=== PATIENT | male | born 1945 | race Caucasian/White ===

== ENCOUNTER 2016-06-25 09:10 | Outpatient (CLI) | payer MEDICARE, OTHER | END 2016-06-25 09:11 | disposition home or self-care (01) | DX: R07.9 Chest pain, unspecified (principal) ==

== ENCOUNTER 2016-10-13 19:52 | Outpatient (CLI) | payer MEDICARE, OTHER ==
--- NOTE | 2016-10-14 08:09 | Ultrasound Report ---
EXAM: LEFT UPPER EXTREMITY VENOUS ULTRASOUND EXAM DATE: 10/13/2016 09:23 PM. CLINICAL HISTORY: FH BLOOD DISORDER, SWELLING OF LEFT ARM. COMPARISON: None. TECHNIQUE: Real-time sonographic vascular imaging was performed by the interior design principal through the upper extremity utilizing both color-flow and Doppler spectral analysis. Multiple business office representative static rahul ges were saved for review. FINDINGS: Internal Jugular Vein (IJV): Normal. Subclavian Vein (SCV): Normal. Axillary Vein : Normal. Cephalic Vein (superficial vein): Normal. Basilic Vein (superficial vein): Normal. Brachial Vein: Normal. Other: None. IMPRESSION: No evidence for left upper extremity deep vein thrombosis. [facility] Referring Provider Line: [phone] SITE ID: [id number]
== END 2016-10-13 19:53 | disposition home or self-care (01) ==
LOC: DI 19:52
PROVIDERS: ATTEND Family Medicine
DX: M79.89 Other specified soft tissue disorders (principal); Z83.2 Family history of diseases of the blood and blood-forming organs and certain disorders involving the immune mechanism

== ENCOUNTER 2017-02-04 09:18 | Outpatient (CLI) | payer MEDICARE, OTHER ==
--- NOTE | 2017-02-04 14:20 | Ultrasound Report ---
LIMITED RETROPERITONEAL ULTRASOUND: 02/04/2017 CLINICAL INDICATION: Followup aneurysm. COMPARISON: 01/29/2016 TECHNIQUE: Real-time scanning was performed with outside sales representative static images obtained. FINDINGS: The abdominal aorta measures 2.9 cm proximally, and 3.2 cm in the mid portion. The bilobe d distal abdominal aortic aneurysm is again seen. Maximal transverse diameter in the superior portio n of the aneurysm is now 4.3 cm, and distal 4.2 cm, increased from previous of 3.8 and 3.4 cm respect ively. No free fluid is present. The iliacs are normal in caliber. IMPRESSION: SLIGHT INTERVAL INCREASE IN SIZE OF BILOBED DISTAL ABDOMINAL AORTIC ANEURYSM, NOW MEASUR ING 4.3 CM MAXIMAL TRANSVERSE DIMENSION. JOB #: [id number] EXT JOB #:[id number]
== END 2017-02-04 09:19 | disposition home or self-care (01) ==
LOC: DI 09:18
PROVIDERS: ATTEND Family Medicine
DX: I71.4 Abdominal aortic aneurysm, without rupture (principal)
CPT/HCPCS: 76775

== ENCOUNTER 2017-02-04 09:18 | Outpatient (CLI) | payer MEDICARE, OTHER | END 2017-02-04 09:19 | disposition home or self-care (01) | LOC: DI 09:18 | PROVIDERS: ATTEND Family Medicine | DX: I48.91 Unspecified atrial fibrillation (principal); I71.4 Abdominal aortic aneurysm, without rupture; I51.7 Cardiomegaly | CPT/HCPCS: 76775; 93306 ==

== ENCOUNTER 2017-05-26 08:47 | Outpatient (CLI) | payer MEDICARE, OTHER ==
[2017-05-26 13:08] LABS: BASOPHILS # (AUTO) 0.1 10^3/uL (0.0-0.1); BASOPHILS % (AUTO) 1.3 %; EOSINOPHILS # (AUTO) 0.1 10^3/uL (0.0-0.7); EOSINOPHILS % (AUTO) 1.4 %; HGB - HEMOGLOBIN 12.8 g/dL (14.0-18.0); LYMPHOCYTES # (AUTO) 1.1 10^3/uL (1.5-3.5); LYMPHOCYTES % (AUTO) 18.8 %; MEAN CORPUSCULAR HEMOGLOBIN 36.9 pg (27.0-31.0); MEAN CORPUSCULAR VOLUME 105.4 fL (80.0-94.0); MONOCYTES # (AUTO) 0.5 10^3/uL (0.0-1.0); MONOCYTES % (AUTO) 8.6 %; NEUTROPHILS # (AUTO) 4.2 10^3/uL (1.5-6.6); NEUTROPHILS % (AUTO) 69.9 %; PLT - PLATELET COUNT 127 10^3/uL (130-450); RED BLOOD COUNT 3.46 10^6/uL (4.70-6.10); RED CELL DISTRIBUTION WIDTH 19.8 % (12.0-15.0)
[2017-05-26 13:33] LABS: ALBUMIN 4.3 g/dL (3.2-5.5); ALKALINE PHOSPHATASE 40 IU/L (42-121); ALT ALANINE AMINOTRANSFERASE 40 IU/L (10-60); AST ASPARTATE AMINOTRANSFERASE 31 IU/L (10-42); BILIRUBIN,TOTAL 3.3 mg/dL (0.2-1.0); BUN - BLOOD UREA NITROGEN 19 mg/dL (6-20); CALCIUM 9.4 mg/dL (8.5-10.3); CARBON DIOXIDE - CO2 29 mmol/L (21-32); CHLORIDE 102 mmol/L (101-111); CHOL/HDL RATIO 3.9 (<5.0); CHOLESTEROL 120 mg/dL; CREATININE 1.4 mg/dL (0.6-1.2); GFR - MDRD 50 (>89); GLUCOSE 117 mg/dL (70-100); HDL CHOLESTEROL 31 mg/dL; LDL CHOLESTEROL,CALCULATED 38 mg/dL; LDL/HDL RATIO 1.2 (<3.6); SODIUM 138 mmol/L (135-145); TOTAL PROTEIN 6.4 g/dL (6.7-8.2); VLDL CHOLESTEROL 51 mg/dL
[2017-05-26 13:36] LABS: PLATELET MORPHOLOGY RARE GIANT PLATELETS (NORMAL); RBC MORPHOLOGY (MULTIPLE) 3+ ANISOCYTOSIS (NORMAL)
== END 2017-05-26 08:48 | disposition home or self-care (01) ==
LOC: LAB.WCP 08:47
PROVIDERS: ATTEND Family Medicine
DX: I10 Essential (primary) hypertension (principal); E78.5 Hyperlipidemia, unspecified
CPT/HCPCS: 36415; 80053; 80061; 83721; 85025

== ENCOUNTER 2017-06-01 08:00 | Outpatient (CLI) | payer MEDICARE, OTHER ==
[2017-06-01 14:14] LABS: % IRON SATURATION 52 % (20-50); IRON 132 ug/dL (45-182); TOTAL IRON BINDING CAPACITY 255 ug/dL (250-450); TRANSFERRIN 182 mg/dL (180-329)
== END 2017-06-01 08:01 | disposition home or self-care (01) ==
LOC: LAB.WCP 08:00
PROVIDERS: ATTEND Family Medicine
DX: D64.9 Anemia, unspecified (principal)
CPT/HCPCS: 36415; 82728; 83540; 84466

== ENCOUNTER 2017-06-10 07:42 | Day surgery (SDC) | payer MEDICARE, OTHER ==
[~2017-06-10 07:42] MED LIST: CYCLOPENTOLATE 1% OPHTH DROPS 2 ML ONE; KETOROLAC 0.45% OPHTH DROPS ONE; PHENYLEPHRINE 2.5% OPHTH 2 ML DROPS ONE; PROPARACAINE 0.5% OPHTH DROPS 15 ML ONE
[2017-06-10] MEDS ORDERED: LACTATED RINGERS 500 ML IV ONE (07:52)
[2017-06-10] MEDS ORDERED: PHENYLEPHRINE 2.5% OPHTH 2 ML DROPS RIGHTEYE ONE (08:00)
[2017-06-10] MEDS ORDERED: CYCLOPENTOLATE 1% OPHTH DROPS 2 ML RIGHTEYE ONE (08:00)
[2017-06-10] MEDS ORDERED: KETOROLAC 0.45% OPHTH DROPS RIGHTEYE ONE (08:00)
[2017-06-10] MEDS ORDERED: PROPARACAINE 0.5% OPHTH DROPS 15 ML RIGHTEYE ONE ×2 (08:00→08:34)
[2017-06-10] MEDS ORDERED: EPINEPHrine 1 MG/ML AMP IR ONE (08:32)
[2017-06-10] MEDS ORDERED: BRIMONIDINE 0.2% OPHTH DROPS 5 ML OPTH ONE (08:32)
[2017-06-10] MEDS ORDERED: CHONDR SULF/HYALURONATE SYRINGE IO ONE (08:33)
[2017-06-10] MEDS ORDERED: TIMOLOL 0.5% OPHTH DROPS OPTH ONE (08:33)
[2017-06-10] MEDS ORDERED: BSS/LIDOCAINE/EPINEPHRINE 1 ML SYRINGE IO ONE ×2 (08:34)
[2017-06-10] MEDS ORDERED: MIDAZOLAM 2 MG/2 ML VIAL IVP ONE (08:34)
[2017-06-10 08:57] VITALS: BP 112/70
--- NOTE | 2017-06-10 09:08 | OPERATIVE REPORT ---
DATE OF SERVICE: 06/10/2017 Physician: Trey Anderson MD PREOPERATIVE DIAGNOSIS: Visually significant cataract, right eye. This was his first cataract surgery. POSTOPERATIVE DIAGNOSIS: Visually significant cataract, right eye. This was his first cataract surgery. NAME OF PROCEDURE: Phacoemulsification with posterior chamber intraocular lens implant, right eye. SURGEON: Trey Anderson MD ANESTHESIA: Monitored anesthesia care. COMPLICATIONS: None. OPERATIVE INDICATIONS: This is a 71-year-old man with progressive vision loss in the right eye due to 2+ nuclear sclerotic cataract. Best corrected visual acuity was 20/20-2 with glare to 20/70 in the right eye. Indications for surgery were difficulty driving in low light or at night and difficulty driving at night because of headlights from other vehicles and/or street lights. He was consented at length concerning risks and benefits of cataract surgery, after which he expressed a desire to proceed with surgery. OPERATIVE PROCEDURE: The patient was taken into OR #3 and placed under monitored anesthesia care. A surgical timeout was conducted confirming correct patient, correct procedure, and correct surgical site. He was given topical anesthesia and then prepped and draped in the usual sterile fashion. The eye was entered at the 12 and 9 o'clock positions. Intracameral Shugarcaine was injected into the anterior chamber, followed by Viscoat. A continuous-tear curvilinear capsulorrhexis was performed. The nucleus was hydrodissected and phacoemulsified. The cortex was evacuated using automated infusion and aspiration. Provisc was injected in the capsular bag, and a 21.0 diopter intraocular lens was inserted into the bag. Approximately 0.8 mL of a mixture of triamcinolone and moxifloxacin was injected subconjunctivally in the superior quadrant for infection and inflammation prophylaxis. I and A was used to evacuate the viscoelastic material. The eye was inflated to physiologic pressure using balanced salt solution and found to be watertight. The patient was taken from the operating room in good condition and given postop instructions. TD: 06/10/2017 09:07
== END 2017-06-10 07:43 | disposition home or self-care (01) ==
LOC: SDS 07:42
PROVIDERS: ATTEND Ophthalmology
PROC: 08RJ3JZ Replacement of Right Lens with Synthetic Substitute, Percutaneous Approach (ICD-10-PCS; principal; 2017-06-10 08:30)
DX: H25.11 Age-related nuclear cataract, right eye (principal); J44.9 Chronic obstructive pulmonary disease, unspecified; I25.10 Atherosclerotic heart disease of native coronary artery without angina pectoris; I25.2 Old myocardial infarction; I10 Essential (primary) hypertension; Z87.891 Personal history of nicotine dependence; E78.5 Hyperlipidemia, unspecified; I48.91 Unspecified atrial fibrillation; K21.9 Gastro-esophageal reflux disease without esophagitis
CPT/HCPCS: 66984; A9270; J3490; V2632

== ENCOUNTER 2017-07-18 09:45 | Emergency (ER) | payer MEDICARE, OTHER ==
[2017-07-18 10:22] LABS: BASOPHILS # (AUTO) 0.1 10^3/uL (0.0-0.1); BASOPHILS % (AUTO) 1.5 %; EOSINOPHILS # (AUTO) 0.1 10^3/uL (0.0-0.7); EOSINOPHILS % (AUTO) 0.9 %; HGB - HEMOGLOBIN 12.9 g/dL (14.0-18.0); LYMPHOCYTES # (AUTO) 0.9 10^3/uL (1.5-3.5); LYMPHOCYTES % (AUTO) 15.1 %; MEAN CORPUSCULAR HEMOGLOBIN 37.2 pg (27.0-31.0); MEAN CORPUSCULAR VOLUME 103.3 fL (80.0-94.0); MEAN PLATELET VOLUME 9.2 fL (7.4-11.4); MONOCYTES # (AUTO) 0.4 10^3/uL (0.0-1.0); MONOCYTES % (AUTO) 7.6 %; NEUTROPHILS # (AUTO) 4.2 10^3/uL (1.5-6.6); NEUTROPHILS % (AUTO) 74.9 %; PLT - PLATELET COUNT 124 10^3/uL (130-450); RED BLOOD COUNT 3.48 10^6/uL (4.70-6.10); RED CELL DISTRIBUTION WIDTH 18.3 % (12.0-15.0); WHITE BLOOD COUNT 5.7 x10^3/uL (4.8-10.8)
[2017-07-18 10:34] LABS: ALBUMIN 4.2 g/dL (3.2-5.5); ALBUMIN/GLOBULIN RATIO 1.9 (1.0-2.2); BILIRUBIN,TOTAL 3.4 mg/dL (0.2-1.0); CALCIUM 9.3 mg/dL (8.5-10.3); CREATININE 1.3 mg/dL (0.6-1.2); TOTAL PROTEIN 6.4 g/dL (6.7-8.2)
[2017-07-18 10:41] LABS: RBC MORPHOLOGY (MULTIPLE) 3+ ANISOCYTOSIS (NORMAL)
--- NOTE | 2017-07-18 10:47 | XRAY Report ---
EXAM: CHEST RADIOGRAPHY EXAM DATE: 07/18/2017 10:35 AM. CLINICAL HISTORY: Chest pain. COMPARISON: None. TECHNIQUE: 2 views. FINDINGS: Lungs/Pleura: No focal opacities evident. No pleural effusion. No pneumothorax. Normal volumes. Mediastinum: Heart and mediastinal contours are unremarkable. Other: Moderate thoracic kyphosis. Mild anterior wedge compression deformity of a midthoracic vertebr al body and a vertebral body at the thoracolumbar junction. IMPRESSION: 1. Lungs are clear. 2. Heart size is normal. 3. Mild anterior wedge compression deformities of a mid thoracic vertebral body and a vertebral body at the thoracolumbar junction. [facility] Referring Provider Line: [phone] SITE ID: [id number]
--- NOTE | 2017-07-18 10:47 | XRAY Preliminary Report ---
Exam: XR CHEST 2 VIEW X-RAY IMPRESSION: 1. Lungs are clear. 2. Heart size is normal. 3. Mild anterior wedge compression deformities of a mid thoracic vertebral body and a vertebral body at the thoracolumbar junction. [facility] SITE ID: [id number]
--- NOTE | 2017-07-18 11:03 | ED Physician Documentation ---
History of Present Illness - Stated complaint Stated Complaint: RT SIDE/NECK PX - Chief complaint Chief Complaint: General - History obtained from History obtained from: Patient, Family - History of Present Illness Timing: How many days ago (4) - Additonal information Additional information: 72-year-old male with a history of atrial fibrillation and abdominal aortic aneurysm has developed some migrating pains in his chest wall and some firmness to his carotid artery. He states that he had some pain in the lateral chest wall on the right side that was tender similar to what he has had previously he states this pain then migrated to the left as well he is not having the symptoms now. He became concerned when he felt that his right carotid artery was firm his palpated she stated that she could feel the artery bounding the patient stated he massaged it for a while and it became soft again. He is not having symptoms now. He does take some furosemide and some Coumadin. Review of Systems Constitutional: denies: Fever Eyes: denies: Decreased vision Ears: denies: Ear pain Nose: denies: Rhinorrhea / runny nose, Congestion Throat: denies: Sore throat Cardiac: denies: Chest pain / pressure, Palpitations Respiratory: denies: Dyspnea, Cough GI: denies: Abdominal Pain, Nausea, Vomiting : denies: Dysuria, Frequency Skin: denies: Rash Musculoskeletal: reports: Neck pain, Back pain. denies: Extremity pain Neurologic: denies: Generalized weakness, Focal weakness, Numbness PD PAST MEDICAL HISTORY - Past Medical History Cardiovascular: Hypertension, High cholesterol, Coronary artery disease, Angina , PR, Atrial fibrillation, Arrhythmia Respiratory: COPD Endocrine/Autoimmune: None GI: GERD : None HEENT: Chronic vision loss Psych: None Musculoskeletal: Osteoarthritis, Osteoporosis Derm: None - Past Surgical History Past Surgical History: Yes General: Cholecystectomy, Colonoscopy Cardiovascular: Cardiac catheterization, Angioplasty - Present Medications Home Medications: Ambulatory Orders Medication Instructions Recorded Confirmed Aspirin 81 mg PO DAILY 11/21/12 07/12/17 Atorvastatin Calcium [Lipitor] 40 mg PO DAILY 11/21/12 07/12/17 Ipratropium/Albuterol Inhaler 1 puffs INH QID PRN 11/21/12 07/12/17 [Combivent Inhaler] Lisinopril [Zestril] 20 mg PO DAILY 11/21/12 07/12/17 Omeprazole [PriLOSEC] 20 mg PO BID 11/21/12 07/12/17 Furosemide [Lasix] 40 mg PO DAILY 07/20/13 07/12/17 Warfarin Sodium [Coumadin] 7.5 mg PO ONCE 07/20/13 07/12/17 Calcium Carbonate 1,200 mg PO DAILY 06/10/17 07/12/17 Calcium Carbonate/Vitamin D3 1 each PO DAILY 06/10/17 07/12/17 [Calcium 500-Vit D3 200 Tablet] Cholecalciferol (Vitamin D3) 2,000 unit PO DAILY 06/10/17 07/12/17 [Vitamin D] L. Acidophilus/L. Rhamnosus 1 each PO DAILY 06/10/17 07/12/17 [Probiotic 15 Billion Cell Cap] Metoprolol Tartrate [Lopressor] 25 mg PO BID 06/10/17 07/12/17 Potassium Chloride [Micro-K] 10 meq PO 0800 06/10/17 07/12/17 Mv-Mn/FA/A Lipoic Acid/Ubidec 1 cap PO DAILY 07/12/17 07/12/17 [Diabetic Vitamin Capsule] Tiotropium Br/Olodaterol HCl 2 puffs INH PRN PRN 07/12/17 07/12/17 [Stiolto Respimat Inhal [place]] - Allergies Allergies/Adverse Reactions: Allergies Allergy/AdvReac Type Severity Reaction Status Date / Time morphine Allergy Intermediate "Gives me Verified 11/18/12 14:42 terrible pain" - Social History Does the pt smoke?: No Smoking Status: Never smoker Does the pt drink ETOH?: Yes PD ED PE NORMAL - Vitals Vital signs reviewed: Yes (Hypertensive) - General General: Alert and oriented X 3, No acute distress, Well developed/nourished - HEENT HEENT: Atraumatic, PERRL, EOMI - Neck Neck: Supple, no meningeal sign, No JVD - Cardiac Cardiac: No murmur, No gallop, Other (Irregularly irregular rate and rhythm) - Respiratory Respiratory: No respiratory distress, Clear bilaterally - Abdomen Abdomen: Soft, Non tender - Back Back: No CVA TTP, No spinal TTP - Derm Derm: Normal color, Warm and dry, No rash - Extremities Extremities: No deformity, No edema - Neuro Neuro: No motor deficit, No sensory deficit Eye Opening: Spontaneous Motor: Obeys Commands Verbal: Oriented GCS Score: 15 - Psych Psych: Normal mood, Normal affect Results - Vitals Vitals: Vital Signs - 24 hr 07/18/17 07/18/17 09:50 11:29 Temperature 36.5 C Heart Rate 18 L 86 Respiratory 16 18 Rate Blood Pressure 133/89 H 116/94 H O2 Saturation 100 100 Oxygen O2 Source Room air - EKG (time done) 0950 Rate: Rate (enter#) (86) [place]: LAD Compare to prior EKG: Changed from prior EKG (SPT 11-21-12 rate has decreased and the unsustained V-tach has resovled. ) Computer interpretation: Agree with computer - Labs Labs: Laboratory Tests 07/18/17 07/18/17 07/18/17 10:13 10:13 10:13 WBC 5.7 RBC 3.48 L Hgb 12.9 L Hct 35.9 L MCV 103.3 H MCH 37.2 H MCHC 36.0 RDW 18.3 H Plt Count 124 L MPV 9.2 Neut # 4.2 Lymph # 0.9 L [place] # 0.4 Eos # 0.1 Baso # 0.1 Absolute Nucleated RBC 0.01 Nucleated RBC % 0.1 Manual Slide Review Indicated RBC Morph Micro Appear 3+ ANISOCYTOSIS PT INR Sodium 136 Potassium 4.2 Chloride 102 Carbon Dioxide 26 Anion Gap 8.0 BUN 29 H Creatinine 1.3 H Estimated GFR (MDRD) 55 L Glucose 153 H Calcium 9.3 Total Bilirubin 3.4 H AST 31 ALT 40 Alkaline Phosphatase 44 Troponin I < 0.04 Total Protein 6.4 L Albumin 4.2 Globulin 2.2 Albumin/Globulin Ratio 1.9 Lipase 35 Urine Color Urine Clarity Urine pH Ur Specific [place] Urine Protein Urine Glucose (UA) Urine Ketones Urine Occult Blood Urine Nitrite Urine Bilirubin Urine Urobilinogen Ur Leukocyte Esterase Ur Microscopic Review Urine Culture Comments 07/18/17 07/18/17 10:13 11:37 WBC RBC Hgb Hct MCV MCH MCHC RDW Plt Count MPV Neut # Lymph # [place] # Eos # Baso # Absolute Nucleated RBC Nucleated RBC % Manual Slide Review RBC Morph Micro Appear PT 28.0 H INR 2.6 H Sodium Potassium Chloride Carbon Dioxide Anion Gap BUN Creatinine Estimated GFR (MDRD) Glucose Calcium Total Bilirubin AST ALT Alkaline Phosphatase Troponin I Total Protein Albumin Globulin Albumin/Globulin Ratio Lipase Urine Color YELLOW Urine Clarity CLEAR Urine pH 6.0 Ur Specific [place] 1.020 Urine Protein NEGATIVE Urine Glucose (UA) NEGATIVE Urine Ketones NEGATIVE Urine Occult Blood NEGATIVE Urine Nitrite NEGATIVE Urine Bilirubin NEGATIVE Urine Urobilinogen 0.2 (NORMAL) Ur Leukocyte Esterase NEGATIVE Ur Microscopic Review NOT INDICATED Urine Culture Comments NOT INDICATED - Rads (name of study) 2 veiw chest Radiology: Prelim report reviewed (Impression: 1. Lungs are clear.2. Heart size is normal. 3. Mild anterior wedge compression deformities of the midthoracic vertebral body and intervertebral body at the thoracolumbar junction.), EMP read indepedently, See rad report CT angio chest Radiology: Prelim report reviewed (Impression: 1. Mild calcification in the thoracic aorta without abnormal dilation or dissection. Brachiocephalic, bilateral subclavian, proximal bilateral common carotid, and proximal bilateral vertebral arteries are patent with only mild scattered calcific plaque. 2. Left anterior descending and circumflex coronary artery calcification. 3. Mild bilateral upper lung paraseptal emphysema.), EMP read indepedently, See rad report CT abd angio Radiology: Prelim report reviewed (Impression: 1. For tandem fusiform aneurysms of the abdominal aorta with largest measuring 4.1 x 3.5 cm in the mid infrarenal abdominal aorta. 2. Mild ostial stenosis at the right renal artery. 3. Small right greater than left fat-containing inguinal hernias.), EMP read indepedently, See rad report Procedures - Bedside sono Bedside sono by EMP: with the use of bedside ultrasound the aorta is measured at 3.1cm and the IVC is not visible or tiny. PD MEDICAL DECISION MAKING - ED course Complexity details: reviewed old records, reviewed results, re-evaluated patient , considered differential, d/w patient, d/w family ED course: 72-year-old male with pains in his side followed by an unusual sensation of fullness in his neck artery appears dehydrated on interrogation the inferior vena cava and is administered intravenous fluid. He does not appear ill in any way today and he is not having symptoms today. Studies are without evidence of significant abnormality with the exception of a abdominal aortic aneurysm that is stable. He does have these pains in a side that he gets periodically and he does have compression fractures in his back. I suspect these may be the culprit for his side pains. I do not have an explanation for what he describes in his neck and I am satisfied with the studies that we have been able to performed today demonstrating no significant abnormality to the carotid arteries or the thoracic aorta. Departure - Departure Disposition: 01 Home, Self Care Clinical Impression: Dehydration, History of vertebral compression fracture Condition: Stable Instructions: ED Dehydration Follow-Up: Ravin Mendes MD [Primary Care Provider] -
[2017-07-18] MEDS ORDERED: SODIUM CHLORIDE 0.9% 1,000 ML IV ONE (11:11)
[2017-07-18 11:28] LABS: INR 2.6 (0.8-1.2)
[2017-07-18 11:40] LABS: BILIRUBIN,URINE NEGATIVE (NEGATIVE); GLUCOSE, URINE (UA) NEGATIVE (NEGATIVE); KETONES,URINE (UA) NEGATIVE (NEGATIVE); LEUKOCYTE ESTERASE, URINE NEGATIVE (NEGATIVE); NITRITE,URINE NEGATIVE (NEGATIVE); OCCULT BLOOD,URINE NEGATIVE (NEGATIVE); PROTEIN,URINE NEGATIVE (NEGATIVE); UROBILINOGEN,URINE 0.2 (NORMAL) E.U./dL (NORMAL)
[2017-07-18 11:42] LABS: CLARITY,URINE CLEAR (CLEAR)
[2017-07-18] MEDS ORDERED: IOPAMIDOL-300 100 ML VIAL ONE (12:37)
[2017-07-18] MEDS ORDERED: IOPAMIDOL-300 100 ML VIAL IVP ONE (13:08)
--- NOTE | 2017-07-18 13:51 | CT Report ---
EXAM: CT ANGIOGRAM CHEST EXAM DATE: 07/18/2017 01:08 PM. CLINICAL HISTORY: Neck artery distention, chest pain. COMPARISONS: CT angiogram abdomen and pelvis performed concurrently, chest radiograph today. TECHNIQUE: Routine axial helical CT angiographic imaging was performed through the chest. IV Contrast: 100 cc Is ovue-300. Reconstructions: Coronal, sagittal, and 3D MIP reconstructions of the aorta. In accordance with CT protocol optimization, one or more of the following dose reduction techniques w ere utilized for this exam: automated exposure control, adjustment of mA and/or KV based on patient s ize, or use of iterative reconstructive technique. FINDINGS: Vascular Structures: Heart size is upper normal. There is left anterior descending and circumflex cor onary artery calcification. Central pulmonary arteries are normal in caliber and enhancement without filling defects. Aortic arch anatomy is conventional. There is mild calcified plaque in the brachioce phalic and proximal bilateral subclavian arteries. Brachiocephalic, bilateral subclavian, proximal bi lateral common carotid, and bilateral vertebral arteries are patent without significant stenosis. The re is mild calcification in the thoracic aorta. See CT angiogram abdomen and pelvis for discussion of abdominal aorta. Lungs/Pleura: Mild bilateral upper lobe predominant paraseptal emphysema. Lung volumes low normal. Mi nimal physiologic dependent atelectasis in the right lower lobe. No confluent consolidation. No discr ete nodule. No generalized interstitial abnormality. Central airways normal. No pleural fluid or pneu mothorax. Mediastinum: Thyroid gland and esophagus are unremarkable. No lymphadenopathy. Abdominal Organs: See report of CT angiogram abdomen and pelvis today. Bones: Mild diffuse idiopathic skeletal hyperostosis in the lower thoracic spine. Chronic mild depres radha deformity L1 vertebral body. Other: Chest wall unremarkable. IMPRESSION: 1. Mild calcification in the thoracic aorta without abnormal dilation or dissection. Brachiocephalic, bilateral subclavian, proximal bilateral common carotid, and proximal bilateral vertebral arteries a re patent with only mild scattered calcified plaque. 2. Left anterior descending and circumflex coronary artery calcification. 3. Mild bilateral upper lung paraseptal emphysema. [facility] Referring Provider Line: [phone] SITE ID: [id number]
--- NOTE | 2017-07-18 13:51 | CT Report ---
EXAM: CT ANGIOGRAM ABDOMEN AND PELVIS WITH CONTRAST EXAM DATE: 07/18/2017 01:08 PM. CLINICAL HISTORY: AAA. COMPARISONS: CT angiogram chest performed concurrently. Retroperitoneal ultrasound 01/29/2016 without report. TECHNIQUE: Routine helical CT angiogram imaging was performed through the abdomen and pelvis in the a rterial phase. IV contrast: ISOVUE 300 100mL. Enteric contrast: No. Reconstructions: Coronal, sagitt al, and 3D MIP reconstructions. In accordance with CT protocol optimization, one or more of the following dose reduction techniques w ere utilized for this exam: automated exposure control, adjustment of mA and/or KV based on patient s ize, or use of iterative reconstructive technique. FINDINGS: Vasculature: Four tandem areas of fusiform aneurysmal dilation of the abdominal aorta measuring 2.7 x 2.5 cm at the level of the SMA origin, 4.1 x 3.2 cm starting immediately below the renal arteries, 4 .1 x 3.5 cm in the mid infrarenal abdominal aorta, and 3.3 x 3.8 cm in the distal infrarenal abdomina l aorta. There is no mural thrombus. There is mild to moderate aortoiliac atherosclerotic calcificati on. Iliac arteries and femoral arteries show no abnormal dilation. The celiac axis is widely patent. The SMA shows minimal mid segment plaque without significant stenosis. CYNTHIA is widely patent. There is mild plaque and stenosis at the right renal artery origin. There is minimal plaque without significa nt stenosis of the left renal artery origin. Lung Bases: Normal. Abdominal Solid Organs: Early arterial phase images of liver, pancreas, spleen, adrenal glands, and l eft kidney are unremarkable. There is a 1.4 cm simple cyst at the posterior lower pole of the right k idney. No hydronephrosis. Biliary system: Gallbladder surgically absent. No ductal dilatation. Peritoneal Cavity: Unopacified stomach and small bowel nondistended. Normal appendix. Small amount of formed stool in the colon. No pericolonic fat stranding. No lymphadenopathy, ascites, or pneumoperit oneum. Pelvic Organs: Bladder, prostate gland, and seminal vesicles unremarkable. Bones: Chronic appearing mild anterior wedge compression deformity L1 vertebral body. Mild diffuse id iopathic skeletal hyperostosis in the lower thoracic spine. Other: Small right greater than left fat-containing inguinal hernias. IMPRESSION: 1. 4 tandem fusiform aneurysms of the abdominal aorta with the largest measuring 4.1 x 3.5 cm in the mid infrarenal abdominal aorta. 2. Mild ostial stenosis at the right renal artery. 3. Small right greater than left fat-containing inguinal hernias. [facility] Referring Provider Line: [phone] SITE ID: [id number]
[2017-07-18 14:28] VITALS: BP 114/74
== END 2017-07-18 14:30 | disposition home or self-care (01) ==
LOC: ED 09:45
DX: E86.0 Dehydration (principal); I71.4 Abdominal aortic aneurysm, without rupture; I25.119 Atherosclerotic heart disease of native coronary artery with unspecified angina pectoris; I10 Essential (primary) hypertension; I25.2 Old myocardial infarction; E78.00 Pure hypercholesterolemia, unspecified; I48.91 Unspecified atrial fibrillation; I49.9 Cardiac arrhythmia, unspecified; J44.9 Chronic obstructive pulmonary disease, unspecified; K21.9 Gastro-esophageal reflux disease without esophagitis; M19.90 Unspecified osteoarthritis, unspecified site; Z79.82 Long term (current) use of aspirin; Z79.01 Long term (current) use of anticoagulants
CPT/HCPCS: 36415; 71046; 71275; 74174; 80053; 81003; 83690; 84484; 85025; 85610; 93005; 96360; 99283; 99284; Q9967; 81001; 87086

== ENCOUNTER 2017-07-22 07:59 | Day surgery (SDC) | payer MEDICARE, OTHER ==
[2017-07-22] MEDS ORDERED: PROPARACAINE 0.5% OPHTH DROPS 15 ML ONE (08:11)
[2017-07-22] MEDS ORDERED: CYCLOPENTOLATE 1% OPHTH DROPS 2 ML ONE (08:11)
[2017-07-22] MEDS ORDERED: PHENYLEPHRINE 2.5% OPHTH 2 ML DROPS ONE (08:11)
[2017-07-22] MEDS ORDERED: KETOROLAC 0.45% OPHTH DROPS ONE (08:11)
[2017-07-22] MEDS ORDERED: CYCLOPENTOLATE 1% OPHTH DROPS 2 ML LEFTEYE ONE (08:23)
[2017-07-22] MEDS ORDERED: PHENYLEPHRINE 2.5% OPHTH 2 ML DROPS LEFTEYE ONE (08:23)
[2017-07-22] MEDS ORDERED: PROPARACAINE 0.5% OPHTH DROPS 15 ML LEFTEYE ONE (08:23)
[2017-07-22] MEDS ORDERED: KETOROLAC 0.45% OPHTH DROPS LEFTEYE ONE (08:23)
[2017-07-22] MEDS ORDERED: LACTATED RINGERS 1,000 ML IV ONE (08:35)
[2017-07-22] MEDS ORDERED: MIDAZOLAM 2 MG/2 ML VIAL IVP ONE (09:10)
[2017-07-22] MEDS ORDERED: EPINEPHrine 1 MG/ML AMP IVP ONE (09:22)
[2017-07-22] MEDS ORDERED: CHONDR SULF/HYALURONATE SYRINGE IO ONE (09:22)
[2017-07-22] MEDS ORDERED: TIMOLOL 0.5% OPHTH DROPS OPTH ONE (09:22)
[2017-07-22] MEDS ORDERED: BRIMONIDINE 0.2% OPHTH DROPS 5 ML OPTH ONE (09:22)
[2017-07-22] MEDS ORDERED: TRIAMCIN/MOXIFLOX/VANCO 1 ML VIAL IO ONE (09:23)
[2017-07-22] MEDS ORDERED: PROPARACAINE 0.5% OPHTH DROPS 15 ML EACHEYE ONE (09:23)
[2017-07-22] MEDS ORDERED: BSS/LIDOCAINE/EPINEPHRINE 1 ML SYRINGE IO ONE ×2 (09:23)
[2017-07-22 09:44] VITALS: BP 98/53
--- NOTE | 2017-07-22 11:05 | OPERATIVE REPORT ---
DATE OF SERVICE: 07/22/2017 Physician: Trey Anderson MD PREOPERATIVE DIAGNOSIS: Visually significant cataract, left eye. Cataract surgery was performed on the right eye on 06/10/2017. POSTOPERATIVE DIAGNOSIS: Visually significant cataract, left eye. Cataract surgery was performed on the right eye on 06/10/2017. NAME OF PROCEDURE: Phacoemulsification with posterior chamber intraocular lens implant, left eye. SURGEON: Trey Anderson MD ANESTHESIA: Monitored anesthesia care. COMPLICATIONS: None. OPERATIVE INDICATIONS: This is a 72-year-old man with progressive vision loss in the left eye due to 2+ nuclear sclerotic cataract. Best corrected visual acuity was 20/20 glare to 20/40 in the left eye. He was consented at length concerning the risks and benefits of cataract surgery, after which he expressed a desire to proceed with surgery. OPERATIVE PROCEDURE: The patient was taken into OR #3 placed under monitored anesthesia care. A surgical timeout was conducted confirming correct patient, correct procedure, and correct surgical site. He was given topical anesthesia and then prepped and draped in the usual sterile fashion. The eye was entered at the 6 and 3 o'clock position. Intracameral Shugarcaine was injected into the anterior chamber, followed by Viscoat. A continuous-tear curvilinear capsulorrhexis was performed. The nucleus was hydrodissected and phacoemulsified. The cortex was evacuated using automated infusion and aspiration. Provisc was injected into the capsular bag, and a 21.5 diopter intraocular lens was inserted into the bag. Approximately a 0.8 mL mixture of triamcinolone and moxifloxacin was injected subconjunctivally in the superior quadrant for infection and inflammation prophylaxis. I and A was used to evacuate the viscoelastic materials. The eye was inflated to physiologic pressure using a balanced salt solution and found to be watertight. The patient was taken from the operating room in good condition, given postop instructions. TD: 07/22/2017 11:04
== END 2017-07-22 08:00 | disposition home or self-care (01) ==
LOC: SDS 07:59
PROVIDERS: ATTEND Ophthalmology
PROC: 08RK3JZ Replacement of Left Lens with Synthetic Substitute, Percutaneous Approach (ICD-10-PCS; principal; 2017-07-22 09:00)
DX: H25.12 Age-related nuclear cataract, left eye (principal); I48.91 Unspecified atrial fibrillation; Z79.01 Long term (current) use of anticoagulants; Z79.82 Long term (current) use of aspirin; I10 Essential (primary) hypertension; J44.9 Chronic obstructive pulmonary disease, unspecified; K21.9 Gastro-esophageal reflux disease without esophagitis
CPT/HCPCS: 66984; A9270; J3490; J7120; V2632

== ENCOUNTER 2018-02-25 08:18 | Outpatient (CLI) | payer MEDICARE, OTHER | END 2018-02-25 08:19 | disposition home or self-care (01) | LOC: DI 08:18 | PROVIDERS: ATTEND Family Medicine | DX: I25.10 Atherosclerotic heart disease of native coronary artery without angina pectoris (principal); I50.22 Chronic systolic (congestive) heart failure; I48.91 Unspecified atrial fibrillation; I34.0 Nonrheumatic mitral (valve) insufficiency | CPT/HCPCS: 93306 ==

== ENCOUNTER 2018-06-01 08:00 | Outpatient (CLI) | payer MEDICARE, OTHER | END 2018-06-01 23:59 | disposition home or self-care (01) | LOC: LAB.WCP 08:00 | PROVIDERS: ATTEND Family Medicine | DX: I48.91 Unspecified atrial fibrillation (principal); Z79.01 Long term (current) use of anticoagulants ==

== ENCOUNTER 2018-06-16 14:27 | Outpatient (CLI) | payer MEDICARE, OTHER ==
[2018-06-16 14:47] LABS: CALCIUM 9.4 mg/dL (8.5-10.3); CREATININE 1.3 mg/dL (0.6-1.2)
== END 2018-06-16 14:28 | disposition home or self-care (01) ==
LOC: LAB 14:27
PROVIDERS: ATTEND Nurse Anesthetist, Certified Registered
DX: I12.9 Hypertensive chronic kidney disease with stage 1 through stage 4 chronic kidney disease, or unspecified chronic kidney disease (principal); N18.3 Chronic kidney disease, stage 3 (moderate); I25.10 Atherosclerotic heart disease of native coronary artery without angina pectoris
CPT/HCPCS: 36415; 80048

== ENCOUNTER 2018-06-23 09:19 | Day surgery (SDC) | payer MEDICARE, OTHER ==
--- NOTE | 2018-06-23 08:17 | ANESTHESIA ---
Pre-Anesthesia VS, & Labs - Diagnosis Diarrhea/hx of colon polyps - Procedure colonoscopy Height 5 ft 10 in Body Mass Index 27.2 Height 5 ft 10 in Body Mass Index 27.2 - NPO >8 hours Home Medications and Allergies Home Medications: Ambulatory Orders Bismuth Subsalicylate [Kaopectate] 262 mg PO ONCE PRN 06/16/18 Cyanocobalamin (Vitamin B-12) [Vitamin B-12] 1,000 mcg PO DAILY 06/16/18 Potassium/Calcium/Magnes/Manga [Emergen-C Electro Mix Packet] 1 each PO ONCE PRN 06/16/18 RX: Vitamin B Complex 1 each PO ONCE 06/16/18 Aspirin 81 mg PO DAILY 11/21/12 Ipratropium/Albuterol Inhaler [Combivent Inhaler] 1 puffs INH QID PRN 11/21/12 Lisinopril [Zestril] 20 mg PO DAILY 11/21/12 Omeprazole [PriLOSEC] 20 mg PO DAILY 11/21/12 Furosemide [Lasix] 10 mg PO DAILY 07/20/13 Warfarin Sodium [Coumadin] 2.5 - 5 mg PO DAILY 07/20/13 Calcium Carbonate [Calcium] 1,200 mg PO DAILY 06/10/17 Calcium Carbonate/Vitamin D3 [Calcium 500-Vit D3 200 Tablet] 1 each PO DAILY 06/10/17 Cholecalciferol (Vitamin D3) [Vitamin D] 2,500 unit PO DAILY 06/10/17 L. Acidophilus/L. Rhamnosus [Probiotic 15 Billion Cell Cap] 2 each PO DAILY 06/10/17 Metoprolol Tartrate [Lopressor] 50 mg PO BID 06/10/17 Potassium Chloride [Micro-K] 10 meq PO 0800 06/10/17 Bismuth Subsalicylate [Kaopectate] 262 mg PO ONCE PRN 06/16/18 Cyanocobalamin (Vitamin B-12) [Vitamin B-12] 1,000 mcg PO DAILY 06/16/18 Potassium/Calcium/Magnes/Manga [Emergen-C Electro Mix Packet] 1 each PO ONCE PRN 06/16/18 Vitamin B Complex 1 each PO ONCE 06/16/18 Atorvastatin Calcium 40 mg PO DAILY 06/20/18 Cannabidiol (Cbd) Extract [Epidiolex] 5 mg PO DAILY 06/20/18 Loperamide [Imodium] 2 mg PO DAILY PRN 06/20/18 Allergies/Adverse Reactions: Allergies Allergy/AdvReac Type Severity Reaction Status Date / Time morphine Allergy Intermediate "Gives me Verified 06/20/18 13:59 terrible pain" Anes History & Medical History - Anesthetic History Anesthesia Complications: reports: No previous complications Family history of Anesthesia Complications: Denies Family history of Malignant Hyperthermia: Denies - Medical History Cardiovascular: reports: Hypertension, High cholesterol, Coronary artery disease, Angina, [place], Atrial fibrillation, Arrhythmia Pulmonary: reports: COPD Gastrointestinal: reports: GERD, Colon polyps, Chronic diarrhea Urinary: reports: None Musculoskeletal: reports: Osteoarthritis, Osteoporosis Endocrine/Autoimmune: reports: None Skin: reports: None Smoking Status: Never smoker - Surgical History General: Cholecystectomy, Colonoscopy Cardiothoracic: Cardiac catheterization, Angioplasty Results - EKG Results EKG Comparison: Reviewed EKG (AF 07/18/17) Exam General: Alert, Oriented x3, Cooperative Dental: WNL, Other (multiple caps/crowns) Mouth Openin Fingerbreadth Neck Mobility: Normal Mallampati classification: II Thyromental Distance: 4-6 cm Respiratory: Lungs clear, Normal breath sounds, No respiratory distress Cardiovascular: Other (AF irreg) Neurological: Normal speech Mental/Cognitive Status: Alert/Oriented X3, Normal for patient Cognitive Status: Within normal limits Plan Anesthesia Type: MAC Consent for Procedure(s) Verified and Reviewed: Yes Code Status: Attempt Resuscitation ASA classification: 3-Severe systemic disease Is this case an emergency?: No
[2018-06-23] MEDS ORDERED: LACTATED RINGERS 1,000 ML IV ONE (09:44)
[2018-06-23] MEDS ORDERED: MIDAZOLAM 2 MG/2 ML VIAL IVP ONE (10:00)
[2018-06-23] MEDS ORDERED: PROPOFOL 200 MG/20 ML VIAL IVP ONE (10:00)
[2018-06-23] MEDS ORDERED: KETAMINE 500 MG/10 ML VIAL IVP ONE (10:00)
[2018-06-23 10:08] LABS: INR 2.1 (0.8-1.2); PT - PROTHROMBIN TIME 23.1 secs (9.9-12.6)
[2018-06-23 11:13] VITALS: BP 128/95
== END 2018-06-23 09:20 | disposition home or self-care (01) ==
LOC: SDS 09:19
PROVIDERS: ATTEND Internal Medicine Gastroenterology
PROC: 0DBN8ZZ Excision of Sigmoid Colon, Via Natural or Artificial Opening Endoscopic (ICD-10-PCS; 2018-06-23)
PROC: 0DBP8ZZ Excision of Rectum, Via Natural or Artificial Opening Endoscopic (ICD-10-PCS; 2018-06-23)
PROC: 0DBF8ZX Excision of Right Large Intestine, Via Natural or Artificial Opening Endoscopic, Diagnostic (ICD-10-PCS; 2018-06-23)
PROC: 0DBG8ZX Excision of Left Large Intestine, Via Natural or Artificial Opening Endoscopic, Diagnostic (ICD-10-PCS; principal; 2018-06-23 10:30)
DX: K63.5 Polyp of colon (principal); D12.8 Benign neoplasm of rectum; R19.7 Diarrhea, unspecified; K21.9 Gastro-esophageal reflux disease without esophagitis; I25.5 Ischemic cardiomyopathy; I48.0 Paroxysmal atrial fibrillation; Z79.82 Long term (current) use of aspirin; Z79.51 Long term (current) use of inhaled steroids; Z79.01 Long term (current) use of anticoagulants; I25.119 Atherosclerotic heart disease of native coronary artery with unspecified angina pectoris; I49.9 Cardiac arrhythmia, unspecified; J44.9 Chronic obstructive pulmonary disease, unspecified; M19.90 Unspecified osteoarthritis, unspecified site; M81.0 Age-related osteoporosis without current pathological fracture; I12.9 Hypertensive chronic kidney disease with stage 1 through stage 4 chronic kidney disease, or unspecified chronic kidney disease; N18.3 Chronic kidney disease, stage 3 (moderate); D64.9 Anemia, unspecified; G62.9 Polyneuropathy, unspecified; N40.0 Benign prostatic hyperplasia without lower urinary tract symptoms; E78.5 Hyperlipidemia, unspecified; I71.4 Abdominal aortic aneurysm, without rupture; E80.4 Gilbert syndrome; I25.2 Old myocardial infarction; Z87.891 Personal history of nicotine dependence
CPT/HCPCS: 36415; 45380; 85610; J7120

== ENCOUNTER 2018-06-29 08:00 | Outpatient (CLI) | payer MEDICARE, OTHER | END 2018-06-29 23:59 | disposition home or self-care (01) | LOC: LAB.WCP 08:00 | PROVIDERS: ATTEND Family Medicine | DX: I48.0 Paroxysmal atrial fibrillation (principal); Z79.01 Long term (current) use of anticoagulants | CPT/HCPCS: 81025 ==

== ENCOUNTER 2018-07-06 14:27 | Outpatient (CLI) | payer MEDICARE, OTHER | END 2018-07-06 14:28 | disposition home or self-care (01) | LOC: LAB 14:27 | PROVIDERS: ATTEND Internal Medicine Gastroenterology | DX: R19.7 Diarrhea, unspecified (principal) | CPT/HCPCS: 36415; 82784; 83516 ==

== ENCOUNTER 2018-07-20 08:00 | Outpatient (CLI) | payer MEDICARE, OTHER | END 2018-07-20 23:59 | disposition home or self-care (01) | LOC: LAB.WCP 08:00 | PROVIDERS: ATTEND Family Medicine | DX: I48.91 Unspecified atrial fibrillation (principal); Z79.01 Long term (current) use of anticoagulants | CPT/HCPCS: 81025 ==

== ENCOUNTER 2018-07-27 08:00 | Outpatient (CLI) | payer MEDICARE, OTHER | END 2018-07-27 23:59 | disposition home or self-care (01) | LOC: LAB.WCP 08:00 | PROVIDERS: ATTEND Family Medicine | DX: I48.0 Paroxysmal atrial fibrillation (principal); Z79.01 Long term (current) use of anticoagulants ==

== ENCOUNTER 2018-08-11 08:00 | Outpatient (CLI) | payer MEDICARE, OTHER | END 2018-08-11 08:01 | disposition home or self-care (01) | LOC: LAB.WCP 08:00 | PROVIDERS: ATTEND Family Medicine | DX: Z51.81 Encounter for therapeutic drug level monitoring (principal); I48.91 Unspecified atrial fibrillation; Z79.01 Long term (current) use of anticoagulants ==

== ENCOUNTER 2018-09-08 08:00 | Outpatient (CLI) | payer MEDICARE, OTHER | END 2018-09-08 23:59 | disposition home or self-care (01) | LOC: LAB.WCP 08:00 | PROVIDERS: ATTEND Family Medicine | DX: I48.0 Paroxysmal atrial fibrillation (principal); Z79.01 Long term (current) use of anticoagulants ==

== ENCOUNTER 2018-10-31 15:50 | Emergency (ER) | payer MEDICARE, OTHER ==
--- NOTE | 2018-10-31 17:17 | ED Physician Documentation ---
History of Present Illness - Stated complaint Stated Complaint: L FOOT SWELLING - Chief complaint Chief Complaint: Ext Problem - History obtained from History obtained from: Patient, Family - History of Present Illness Timing: Today Pain level max: 0 Pain level now: 0 Improved by: elevation Worsened by: walking - Additonal information Additional information: L foot and ankle swelling. has neuropathy. no known injury. Review of Systems Constitutional: denies: Fever, Chills Cardiac: denies: Chest pain / pressure Respiratory: denies: Dyspnea, Cough GI: denies: Vomiting Skin: denies: Rash Neurologic: denies: Headache PD PAST MEDICAL HISTORY - Past Medical History Past Medical History: Yes Cardiovascular: Hypertension, High cholesterol, Coronary artery disease, Angina, [place], Atrial fibrillation, Arrhythmia Respiratory: COPD Endocrine/Autoimmune: None GI: GERD, Colon polyps, Chronic diarrhea : None HEENT: Chronic vision loss Psych: None Musculoskeletal: Osteoarthritis, Osteoporosis Derm: None - Past Surgical History Past Surgical History: Yes General: Cholecystectomy, Colonoscopy Cardiovascular: Cardiac catheterization, Angioplasty - Present Medications Home Medications: Ambulatory Orders Medication Instructions Recorded Confirmed Aspirin 81 mg PO DAILY 11/21/12 06/23/18 Ipratropium/Albuterol Inhaler 1 puffs INH QID PRN 11/21/12 06/23/18 [Combivent Inhaler] Lisinopril [Zestril] 20 mg PO DAILY 11/21/12 06/20/18 Omeprazole [PriLOSEC] 20 mg PO DAILY 11/21/12 06/20/18 Furosemide [Lasix] 10 mg PO DAILY 07/20/13 06/23/18 Warfarin Sodium [Coumadin] 2.5 - 5 mg PO DAILY 07/20/13 06/23/18 Calcium Carbonate/Vitamin D3 1 each PO DAILY 06/10/17 06/20/18 [Calcium 500-Vit D3 200 Tablet] Cholecalciferol (Vitamin D3) 2,500 unit PO DAILY 06/10/17 06/23/18 [Vitamin D] L. Acidophilus/L. Rhamnosus 2 each PO DAILY 06/10/17 06/23/18 [Probiotic 15 Billion Cell Cap] Metoprolol Tartrate [Lopressor] 50 mg PO BID 06/10/17 06/20/18 Potassium Chloride [Micro-K] 10 meq PO 0800 06/10/17 06/23/18 Bismuth Subsalicylate [Kaopectate] 262 mg PO ONCE PRN 06/16/18 06/20/18 Cyanocobalamin (Vitamin B-12) 1,000 mcg PO DAILY 06/16/18 06/23/18 [Vitamin B-12] Atorvastatin Calcium 40 mg PO DAILY 06/20/18 06/20/18 Cannabidiol (Cbd) Extract 5 mg PO DAILY 06/20/18 06/20/18 [Epidiolex] Loperamide [Imodium] 2 mg PO DAILY PRN 06/20/18 06/20/18 - Allergies Allergies/Adverse Reactions: Allergies Allergy/AdvReac Type Severity Reaction Status Date / Time morphine Allergy Intermediate "Gives me Verified 10/31/18 16:08 terrible pain" - Social History Does the pt smoke?: No Smoking Status: Never smoker Does the pt drink ETOH?: Yes PD ED PE NORMAL - Vitals Vital signs reviewed: Yes - General General: Alert and oriented X 3, No acute distress - HEENT HEENT: Moist mucous membranes - Neck Neck: Supple, no meningeal sign - Cardiac Cardiac: RRR - Respiratory Respiratory: Clear bilaterally - Abdomen Abdomen: Soft, Non tender, Non distended - Derm Derm: Warm and dry - Extremities Extremities: Other (Mild swelling to the left foot and ankle. No overlying skin changes. No cellulitis. No open wounds.) - Neuro Neuro: Alert and oriented X 3 - Psych Psych: Normal mood, Normal affect Results - Vitals Vitals: Oxygen O2 Source Room air - Rads (name of study) L leg US Radiology: Prelim report reviewed, EMP read contemporaneously, See rad report (No DVT) L foot xray Radiology: Prelim report reviewed, EMP read contemporaneously, See rad report (No acute fractures) PD MEDICAL DECISION MAKING - ED course Complexity details: reviewed results, re-evaluated patient, considered differential, d/w patient, d/w family ED course: Patient with what appears to be dependent edema of the left foot and ankle. No acute findings on x-ray or ultrasound. No acute lab abnormalities. Patient will follow-up with his PCP for further care. Patient and family counseled regarding signs and symptoms for which I believe and urgent re-evaluation would be necessary. Patient with good understanding of and agreement to plan and is comfortable going home at this time This document was made in part using voice recognition software. While efforts are made to proofread this document, sound alike and grammatical errors may occur. Departure - Departure Disposition: 01 Home, Self Care Clinical Impression: Foot swelling Condition: Good Instructions: ED Leg Swelling Unilateral Follow-Up: Ravin Mendes MD [Primary Care Provider] - Within 3 Days Comments: Your x-ray and ultrasound did not show any acute findings today. Follow-up with your doctor for further care. Return if you worsen. Discharge Date/Time: 10/31/18 18:55
--- NOTE | 2018-10-31 17:45 | XRAY Report ---
Reason: L foot swelling, no known injury, has neuropathy Procedure Date: 10/31/2018 Accession Number: [id number] / [id number] Procedure: XR - Foot 3 View LT CPT Code: FULL RESULT: EXAM: LEFT FOOT RADIOGRAPHY EXAM DATE: 10/31/2018 05:20 PM. CLINICAL HISTORY: Left foot swelling. No known injury. Has neuropathy. COMPARISON: None. TECHNIQUE: 3 views. FINDINGS: Bones: No traumatic or destructive bone abnormality. Large plantar calcaneal enthesophyte noted. Joints: Normal. No subluxations. Soft Tissues: Dorsal arterial calcification noted. IMPRESSION: 1. No acute bony abnormality. 2. Dorsal arterial calcification noted. RADIA
--- NOTE | 2018-10-31 18:19 | Ultrasound Report ---
Reason: L leg swelling Procedure Date: 10/31/2018 Accession Number: [id number] / [id number] Procedure: US - Duplex Ext Veins Left CPT Code: FULL RESULT: EXAM: LEFT LOWER EXTREMITY VENOUS ULTRASOUND EXAM DATE: 10/31/2018 05:45 PM. CLINICAL HISTORY: Left leg swelling. COMPARISON: None. TECHNIQUE: Real-time sonographic vascular imaging was performed by the herbarium worker through the lower extremity utilizing both color-flow and Doppler spectral analysis. Multiple assistance representative static images were saved for review. FINDINGS: Common Femoral Vein (CFV): Normal. CFV-GSV Junction: Normal. Profunda Femoral Vein (PFV): Normal. Femoral Vein (FV) Prox: Normal. Femoral Vein (FV) Mid: Normal. Femoral Vein (FV) Dist: Normal. Popliteal Vein: Normal. Posterior Tibial Veins: Normal. Peroneal Veins: Normal. IMPRESSION: No evidence for deep venous thrombosis. RADIA
[2018-10-31 18:54] VITALS: BP 138/92
== END 2018-10-31 18:55 | disposition home or self-care (01) ==
LOC: ED 15:50
DX: M25.472 Effusion, left ankle (principal); M79.89 Other specified soft tissue disorders; G62.9 Polyneuropathy, unspecified; I10 Essential (primary) hypertension; I48.91 Unspecified atrial fibrillation; Z79.01 Long term (current) use of anticoagulants; Z79.82 Long term (current) use of aspirin
CPT/HCPCS: 99282; 99284

== ENCOUNTER 2018-11-03 08:00 | Outpatient (CLI) | payer MEDICARE, OTHER | END 2018-11-03 23:59 | disposition home or self-care (01) | LOC: LAB.WCP 08:00 | PROVIDERS: ATTEND Family Medicine | DX: I48.91 Unspecified atrial fibrillation (principal); Z79.01 Long term (current) use of anticoagulants ==

== ENCOUNTER 2018-12-30 08:00 | Outpatient (CLI) | payer MEDICARE, OTHER | END 2018-12-30 23:59 | disposition home or self-care (01) | LOC: LAB.WCP 08:00 | PROVIDERS: ATTEND Family Medicine | DX: Z79.01 Long term (current) use of anticoagulants (principal); I48.0 Paroxysmal atrial fibrillation ==

== ENCOUNTER 2019-01-13 08:00 | Outpatient (CLI) | payer MEDICARE, OTHER | END 2019-01-13 23:59 | disposition home or self-care (01) | LOC: LAB.WCP 08:00 | PROVIDERS: ATTEND Family Medicine | DX: Z79.01 Long term (current) use of anticoagulants (principal); I48.91 Unspecified atrial fibrillation ==

== ENCOUNTER 2019-01-27 08:00 | Outpatient (CLI) | payer MEDICARE, OTHER | END 2019-01-27 23:59 | disposition home or self-care (01) | LOC: LAB.WCP 08:00 | PROVIDERS: ATTEND Family Medicine | DX: Z79.01 Long term (current) use of anticoagulants (principal); I48.91 Unspecified atrial fibrillation ==

== ENCOUNTER 2019-02-06 08:00 | Outpatient (CLI) | payer MEDICARE, OTHER | END 2019-02-06 23:59 | disposition home or self-care (01) | LOC: LAB.WCP 08:00 | PROVIDERS: ATTEND Physician Assistant Medical | DX: Z79.01 Long term (current) use of anticoagulants (principal); I48.91 Unspecified atrial fibrillation ==

== ENCOUNTER 2019-02-13 08:00 | Outpatient (CLI) | payer MEDICARE, OTHER | END 2019-02-13 23:59 | disposition home or self-care (01) | LOC: LAB.WCP 08:00 | PROVIDERS: ATTEND Physician Assistant Medical | DX: I48.91 Unspecified atrial fibrillation (principal); Z79.01 Long term (current) use of anticoagulants ==

== ENCOUNTER 2019-02-20 08:00 | Outpatient (CLI) | payer MEDICARE, OTHER | END 2019-02-20 23:59 | disposition home or self-care (01) | LOC: LAB.WCP 08:00 | PROVIDERS: ATTEND Physician Assistant Medical | DX: Z79.01 Long term (current) use of anticoagulants (principal); I48.91 Unspecified atrial fibrillation ==

== ENCOUNTER 2019-03-01 09:18 | Outpatient (CLI) | payer MEDICARE, OTHER ==
--- NOTE | 2019-03-01 16:41 | Ultrasound Report ---
Reason: AAA, AFIB, THORACIC AORTIC ANEURYSM Procedure Date: 03/01/2019 Accession Number: [id number] / [id number] Procedure: US - Retroperitoneal Limited CPT Code: Final Report FULL RESULT: EXAM: AORTIC DOPPLER ULTRASOUND EXAM DATE: 03/01/2019 01:01 PM. CLINICAL HISTORY: Known aortic aneurysm. COMPARISON: RETROPERITONEAL US 02/04/2017 ABDOMEN/PELVIS CT 07/18/2017. TECHNIQUE: Real-time sonographic imaging of retroperitoneal vascular structures, including color-flow, Doppler flow and spectral analysis was performed by the banbury machine operator. Multiple inside sales account representative static images were saved for review. FINDINGS: Aorta: The abdominal aorta was adequately visualized. The proximal aorta measures 2.7 cm in sagittal dimension. There is a fusiform infrarenal aortic aneurysm spanning approximately 9.7 cm in length. This is stable in size and morphology when compared to the prior CT given variation in imaging technique. The proximal extent measures approximately 4.1 x 3.5 cm and the distal extent measures approximately 4.5 x 3.5 cm in transverse dimension. Iliac Vessels: Right iliac artery measures 11 x 10 mm. Left iliac artery measures 13 x 9 mm. Other: No free fluid. IMPRESSION: Fusiform infrarenal aortic aneurysm measuring 4.5 cm in maximal transverse dimension. This is morphologically stable given technical differences when compared to a CT - 07/18/2017 and an ultrasound - 02/04/2017. RADIA
== END 2019-03-01 09:19 | disposition home or self-care (01) ==
LOC: DI 09:18
PROVIDERS: ATTEND Family Medicine
DX: I71.4 Abdominal aortic aneurysm, without rupture (principal); I48.0 Paroxysmal atrial fibrillation; I34.0 Nonrheumatic mitral (valve) insufficiency
CPT/HCPCS: 76775; 93306

== ENCOUNTER 2019-03-06 08:00 | Outpatient (CLI) | payer MEDICARE, OTHER | END 2019-03-06 23:59 | disposition home or self-care (01) | LOC: LAB.WCP 08:00 | PROVIDERS: ATTEND Physician Assistant Medical | DX: Z79.01 Long term (current) use of anticoagulants (principal); I48.91 Unspecified atrial fibrillation ==

== ENCOUNTER 2019-03-23 08:00 | Outpatient (CLI) | payer MEDICARE, OTHER | END 2019-03-23 23:59 | disposition home or self-care (01) | LOC: LAB.WCP 08:00 | PROVIDERS: ATTEND Family Medicine | DX: Z79.01 Long term (current) use of anticoagulants (principal); I48.91 Unspecified atrial fibrillation ==

== ENCOUNTER 2019-04-20 08:00 | Outpatient (CLI) | payer MEDICARE, OTHER | END 2019-04-20 23:59 | disposition home or self-care (01) | LOC: LAB.WCP 08:00 | PROVIDERS: ATTEND Family Medicine | DX: Z79.01 Long term (current) use of anticoagulants (principal); I48.91 Unspecified atrial fibrillation ==

== ENCOUNTER 2019-04-27 08:00 | Outpatient (CLI) | payer MEDICARE, OTHER | END 2019-04-27 23:59 | disposition home or self-care (01) | LOC: LAB.WCP 08:00 | PROVIDERS: ATTEND Family Medicine | DX: I48.91 Unspecified atrial fibrillation (principal); Z79.01 Long term (current) use of anticoagulants ==

== ENCOUNTER 2019-05-02 08:00 | Outpatient (CLI) | payer MEDICARE, OTHER | END 2019-05-02 23:59 | disposition home or self-care (01) | LOC: LAB.WCP 08:00 | PROVIDERS: ATTEND Family Medicine | DX: Z79.01 Long term (current) use of anticoagulants (principal); I48.91 Unspecified atrial fibrillation ==

== ENCOUNTER 2019-05-18 08:00 | Outpatient (CLI) | payer MEDICARE, OTHER | END 2019-05-18 23:59 | disposition home or self-care (01) | LOC: LAB.WCP 08:00 | PROVIDERS: ATTEND Family Medicine | DX: I48.91 Unspecified atrial fibrillation (principal); Z79.01 Long term (current) use of anticoagulants ==

== ENCOUNTER 2019-06-15 08:00 | Outpatient (CLI) | payer MEDICARE, OTHER | END 2019-06-15 23:59 | disposition home or self-care (01) | LOC: LAB.WCP 08:00 | PROVIDERS: ATTEND Family Medicine | DX: I48.91 Unspecified atrial fibrillation (principal); Z79.01 Long term (current) use of anticoagulants ==

== ENCOUNTER 2019-07-13 08:00 | Outpatient (CLI) | payer MEDICARE, OTHER | END 2019-07-13 08:01 | disposition home or self-care (01) | LOC: LAB.WCP 08:00 | PROVIDERS: ATTEND Family Medicine | DX: I48.91 Unspecified atrial fibrillation (principal); Z79.01 Long term (current) use of anticoagulants ==

== ENCOUNTER 2019-07-20 08:00 | Outpatient (CLI) | payer MEDICARE, OTHER | END 2019-07-20 23:59 | disposition home or self-care (01) | LOC: LAB.WCP 08:00 | PROVIDERS: ATTEND Family Medicine | DX: I48.91 Unspecified atrial fibrillation (principal) ==

== ENCOUNTER 2019-07-27 08:00 | Outpatient (CLI) | payer MEDICARE, OTHER | END 2019-07-27 23:59 | disposition home or self-care (01) | LOC: LAB.WCP 08:00 | PROVIDERS: ATTEND Family Medicine | DX: I71.2 Thoracic aortic aneurysm, without rupture (principal); Z79.01 Long term (current) use of anticoagulants ==

== ENCOUNTER 2019-08-16 08:00 | Outpatient (CLI) | payer MEDICARE, OTHER | END 2019-08-16 23:59 | disposition home or self-care (01) | LOC: LAB.WCP 08:00 | PROVIDERS: ATTEND Family Medicine | DX: I48.0 Paroxysmal atrial fibrillation (principal); Z79.01 Long term (current) use of anticoagulants ==

== ENCOUNTER 2019-09-13 08:00 | Outpatient (CLI) | payer MEDICARE, OTHER | END 2019-09-13 23:59 | disposition home or self-care (01) | LOC: LAB.WCP 08:00 | PROVIDERS: ATTEND Family Medicine | DX: I48.91 Unspecified atrial fibrillation (principal); Z79.01 Long term (current) use of anticoagulants ==

== ENCOUNTER 2019-09-27 08:00 | Outpatient (CLI) | payer MEDICARE, OTHER | END 2019-09-27 23:59 | disposition home or self-care (01) | LOC: LAB.WCP 08:00 | PROVIDERS: ATTEND Family Medicine | DX: I48.91 Unspecified atrial fibrillation (principal); Z79.01 Long term (current) use of anticoagulants ==

== ENCOUNTER 2019-11-01 08:00 | Outpatient (CLI) | payer MEDICARE, OTHER | END 2019-11-01 23:59 | disposition home or self-care (01) | LOC: LAB.WCP 08:00 | PROVIDERS: ATTEND Family Medicine | DX: I48.0 Paroxysmal atrial fibrillation (principal); Z79.01 Long term (current) use of anticoagulants ==

== ENCOUNTER 2019-11-22 08:00 | Outpatient (CLI) | payer MEDICARE, OTHER | END 2019-11-22 23:59 | disposition home or self-care (01) | LOC: LAB.WCP 08:00 | PROVIDERS: ATTEND Physician Assistant Medical | DX: I48.91 Unspecified atrial fibrillation (principal); Z79.01 Long term (current) use of anticoagulants ==

== ENCOUNTER 2019-12-20 08:00 | Outpatient (CLI) | payer MEDICARE, OTHER | END 2019-12-20 23:59 | disposition home or self-care (01) | LOC: LAB.WCP 08:00 | PROVIDERS: ATTEND Family Medicine | DX: Z53.9 Procedure and treatment not carried out, unspecified reason (principal) ==

== ENCOUNTER 2020-01-10 08:00 | Outpatient (CLI) | payer MEDICARE, OTHER | END 2020-01-10 23:59 | disposition home or self-care (01) | LOC: LAB.WCP 08:00 | PROVIDERS: ATTEND Family Medicine | DX: Z79.01 Long term (current) use of anticoagulants (principal) ==

== ENCOUNTER 2020-02-07 08:00 | Outpatient (CLI) | payer MEDICARE, OTHER | END 2020-02-07 23:59 | disposition home or self-care (01) | LOC: LAB.WCP 08:00 | PROVIDERS: ATTEND Internal Medicine | DX: Z79.01 Long term (current) use of anticoagulants (principal) ==

== ENCOUNTER 2020-02-14 08:00 | Outpatient (CLI) | payer MEDICARE, OTHER | END 2020-02-14 23:59 | disposition home or self-care (01) | LOC: LAB.WCP 08:00 | PROVIDERS: ATTEND Internal Medicine | DX: Z79.01 Long term (current) use of anticoagulants (principal) ==

== ENCOUNTER 2020-02-26 08:00 | Outpatient (CLI) | payer MEDICARE, OTHER | END 2020-02-26 23:59 | disposition home or self-care (01) | LOC: LAB.WCP 08:00 | PROVIDERS: ATTEND Internal Medicine | DX: Z79.01 Long term (current) use of anticoagulants (principal) ==

== ENCOUNTER 2020-03-01 07:42 | Outpatient (CLI) | payer MEDICARE, OTHER ==
[2020-03-01 08:55] LABS: ALBUMIN 4.3 g/dL (3.2-5.5); BILIRUBIN,TOTAL 3.5 mg/dL (0.2-1.0); CALCIUM 9.2 mg/dL (8.5-10.3); CREATININE 1.4 mg/dL (0.6-1.2); TOTAL PROTEIN 6.4 g/dL (6.7-8.2)
[2020-03-01] MEDS ORDERED: IOVERSOL 320 100 ML VIAL IVP ONE ×2 (08:59→09:58)
--- NOTE | 2020-03-01 10:29 | CT Report ---
PROCEDURE: ANGIO CHEST W/WO INDICATIONS: THORACIC AORTIC ANEURYSM, AAA, SYSTOLIC HEART FAIL CONTRAST: IV CONTRAST: Optiray 320 ml: 80 PO CONTRAST: *NO PO CONTRAST TECHNIQUE: After the administration of intravenous contrast, 2 mm thick sections acquired from the pulmonary api marcelle to the posterior costophrenic angles. 3-dimensional maximum intensity projection (MIP) coronal a nd sagittal reformats were then acquired through the thorax. For radiation dose reduction, the follow ing was used: automated exposure control, adjustment of mA and/or kV according to patient size. COMPARISON: 07/18/2017 FINDINGS: Image quality: Excellent. Thoracic and upper abdominal aorta and its attachments: The thoracic aorta is normal in caliber. The ascending aorta measures 3.1 cm. There is classic three-vessel arch anatomy. There are atheroscleroti c calcifications in the great vessels. There is mild left subclavian stenosis. The brachiocephalic an d left common carotid are widely patent. Celiac and SMA are widely patent. Main renal arteries widely patent. Known abdominal aortic aneurysm is evaluated on this study. Most recently, he was evaluated by ultrasound on 03/02/2019. That time, the largest diameter was 4.5 x 3.5 cm. Pulmonary arteries: The bilateral main pulmonary arteries are dilated. The right main pulmonary arter y measures 0.5 cm. The left main pulmonary artery measures 3.0 cm. Findings are consistent with pulmo nary arterial hypertension. No intraluminal filling defects to suggest central pulmonary embolism. Lungs and pleura: Lungs are clear. Mild centrilobular emphysema. Minimal bilateral pleural effusions . Central and peripheral airways are patent. Mediastinum: Four-chamber cardiomegaly. No pericardial effusion. Advanced coronary atherosclerotic ca lcifications. Great vessel origin calcifications. No mediastinal or hilar adenopathy. Thoracic aorta is normal in caliber and enhancement. Esophagus is normal in caliber, without hiatal hernia. Bones and chest wall: No suspicious bony lesions. There are multiple chronic thoracic compression fr actures. Ribs and thoracic spine appear intact throughout. The thyroid is normal. No axillary or martinez praclavicular adenopathy. Abdomen: Splenomegaly. Remote cholecystectomy. IMPRESSION: 1. No evidence of thoracic aortic aneurysm. 2. A known infrarenal abdominal aortic aneurysm, which measured 4.5 cm in February,, is incomple tely evaluated. 3. Findings consistent with pulmonary arterial hypertension. 4. Cardiomegaly. 5. Advanced coronary artery atherosclerotic disease. 6. Mild centrilobular emphysema. 7. Minimal bilateral pleural effusions. 8. Splenomegaly. Reviewed by: Chapin Clemons MD on 03/01/2020 10:28 AM PST Approved by: Chapin Clemons MD on 03/01/2020 10:28 AM PST Station ID: [id number]
== END 2020-03-01 07:43 | disposition home or self-care (01) ==
LOC: DI 07:42
PROVIDERS: ATTEND Family Medicine
DX: J43.2 Centrilobular emphysema (principal); J90 Pleural effusion, not elsewhere classified; R16.1 Splenomegaly, not elsewhere classified; R93.89 Abnormal findings on diagnostic imaging of other specified body structures; I48.91 Unspecified atrial fibrillation; I51.7 Cardiomegaly; I25.10 Atherosclerotic heart disease of native coronary artery without angina pectoris; I13.0 Hypertensive heart and chronic kidney disease with heart failure and stage 1 through stage 4 chronic kidney disease, or unspecified chronic kidney disease; I50.20 Unspecified systolic (congestive) heart failure; N18.30 Chronic kidney disease, stage 3 unspecified; E78.5 Hyperlipidemia, unspecified; R73.01 Impaired fasting glucose
CPT/HCPCS: 36415; 71275; 80053; 93306; Q9967

== ENCOUNTER 2020-03-24 20:53 | Emergency (ER) | payer MEDICARE, OTHER ==
--- NOTE | 2020-03-24 21:31 | ED Physician Documentation ---
History of Present Illness - Stated complaint Stated Complaint: RT LEG PX - Chief complaint Chief Complaint: Laceration - History obtained from History obtained from: Patient - History of Present Illness Timing: Prior to arrival - Additonal information Additional information: 74-year-old male presents to the emergency department for evaluation of right groin and thigh pain. He underwent an angioplasty 03/19/2020 at [facility]. He reports that the angio of his heart was unremarkable and showed no worrisome findings. He does have a history of atrial fib and is anticoagulated on Coumadin. Since the procedure he reports that he has been mostly pain-free in the groin area however this morning he noted a warm burning sensation from the angiogram site traveling down the right thigh. Initially it was short-lived but as the day has gone on is gotten more persistent. He denies numbness or tingling in the distal foot or leg. He has not had any falls or trauma. He is got a normal gait. There is a small amount of bruising around the insertion site and the dressing remains intact. he denies CP, SOB. Review of Systems Constitutional: reports: Reviewed and negative Eyes: reports: Reviewed and negative Nose: reports: Reviewed and negative Throat: reports: Reviewed and negative Cardiac: reports: Reviewed and negative Respiratory: reports: Reviewed and negative GI: reports: Reviewed and negative : reports: Reviewed and negative Skin: reports: Other (bruising right groin) Musculoskeletal: reports: Reviewed and negative PD PAST MEDICAL HISTORY - Past Medical History Cardiovascular: Hypertension, High cholesterol, Coronary artery disease, Angina, [place], Atrial fibrillation, Arrhythmia Respiratory: COPD Endocrine/Autoimmune: None GI: GERD, Colon polyps, Chronic diarrhea : None HEENT: Chronic vision loss Psych: None Musculoskeletal: Osteoarthritis, Osteoporosis Derm: None - Past Surgical History Past Surgical History: Yes General: Cholecystectomy, Colonoscopy Cardiovascular: Cardiac catheterization, Angioplasty - Present Medications Home Medications: Ambulatory Orders Medication Instructions Recorded Confirmed Aspirin 81 mg PO DAILY 11/21/12 03/24/20 Omeprazole [PriLOSEC] 20 mg PO DAILY 11/21/12 03/24/20 lisinopriL [Zestril] 40 mg PO DAILY 11/21/12 03/24/20 Furosemide [Lasix] 40 mg PO DAILY 07/20/13 03/24/20 Warfarin Sodium [Coumadin] 2.5 - 5 mg PO DAILY 07/20/13 03/24/20 Calcium Carbonate/Vitamin D3 1 each PO DAILY 06/10/17 03/24/20 [Calcium 500-Vit D3 200 Tablet] L. Acidophilus/L. Rhamnosus 2 each PO DAILY 06/10/17 03/24/20 [Probiotic 15 Billion Cell Cap] Metoprolol Tartrate [Lopressor] 50 mg PO BID 06/10/17 03/24/20 Potassium Chloride [Micro-K] 10 meq PO 0800 06/10/17 03/24/20 Cyanocobalamin (Vitamin B-12) 1,000 mcg PO DAILY 06/16/18 03/24/20 [Vitamin B-12] Atorvastatin Calcium 40 mg PO DAILY 06/20/18 03/24/20 Loperamide [Imodium] 2 mg PO DAILY PRN 06/20/18 03/24/20 - Allergies Allergies/Adverse Reactions: Allergies Allergy/AdvReac Type Severity Reaction Status Date / Time morphine Allergy Intermediate "Gives me Verified 03/24/20 21:00 terrible pain" - Social History Does the pt smoke?: No Smoking Status: Never smoker Does the pt drink ETOH?: Yes Does the pt have substance abuse?: No PD ED PE EXPANDED - General General: Alert, No acute distress - Cardiac Cardiac: Irregularly irregular, Radial strong equal, Femoral strong equal (Bounding 2+ right femoral pulse. 1+ left femoral pulse. 2+ distal DP pulse bilaterally. Warm extremities. No leg swelling calf pain tenderness bilaterally.), Pedal strong equal. No: Murmur Present - Respiratory Respiratory: Clear to ausultation louie. No: Distress, Labored - Extremities Extremities: Pedal Pulses Present. No: Pedal edema R, Pedal edema L, Pedal edema bilateral, Right calf TTP/cord, Cold foot - GCS Eye Opening: Spontaneous Motor: Obeys Commands Verbal: Oriented Total: 15 Results - Vitals Vitals: Vital Signs - 24 hr 03/24/20 20:57 Temperature 36.4 C L Heart Rate 91 Respiratory 14 Rate Blood Pressure 132/97 H O2 Saturation 100 Oxygen O2 Source Room air - Labs Labs: Laboratory Tests 03/24/20 03/24/20 03/24/20 21:24 21:24 21:24 WBC 5.7 RBC 3.75 L Hgb 13.3 L Hct 38.4 L MCV 102.4 H MCH 35.5 H MCHC 34.6 RDW 15.2 H Plt Count 127 L MPV 11.8 H Neut # (Auto) 3.9 Lymph # (Auto) 1.0 L [place] # (Auto) 0.5 Eos # (Auto) 0.1 Baso # (Auto) 0.1 Absolute Nucleated RBC 0.02 Nucleated RBC % 0.4 PT 17.3 H INR 1.6 H Sodium 139 Potassium 3.8 Chloride 101 Carbon Dioxide 25 Anion Gap 13.0 BUN 23 H Creatinine 1.6 H Estimated GFR (MDRD) 43 L Glucose 146 H Calcium 8.9 Total Bilirubin 2.7 H AST 22 ALT 30 Alkaline Phosphatase 47 Total Protein 6.3 L Albumin 4.4 Globulin 1.9 L Albumin/Globulin Ratio 2.3 H Lipase 54 H - Rads (name of study) Ultrasound arterial right leg Radiology: See rad report, Other (Technologist reports there is no fluid collection within the right groin. No findings consistent with pseudoaneurysm.) PD MEDICAL DECISION MAKING - ED course Complexity details: reviewed results, re-evaluated patient, considered differential, d/w patient ED course: This is a very well-appearing 74-year-old male that comes to the emergency department for evaluation of right groin and thigh pain. He recently underwent angiogram on the of this month. He is anticoagulated on Coumadin as he does have a history of atrial fibrillation. He has small to moderate amount of bruising in the groin that you would expect post procedure. He does have a bounding right femoral pulse in comparison to the left femoral pulse. We will proceed with a arterial exam of the site to rule out a pseudoaneurysm as well as evaluate for any fluid collections. 2215: Ultrasound completed at the bedside does not show any fluid collections. The femoral artery is patent. There is no findings consistent with a pseudoaneurysm. This gentleman's hemoglobin is quite stable. He has resumed taking his Coumadin as instructed post procedure. His INR today is 1.6. Pt was advised to take one extra dose of coumadin and continue f/u with hsi pcp. His legs are both warm and well perfused. There is no leg swelling or calf pain tenderness. Patient reports that he will continue to follow-up with his primary care provider. Appears well has a normal gait and unremarkable vital signs here at the bedside. Departure - Departure Disposition: 01 Home, Self Care Clinical Impression: Right thigh pain, History of coronary angiogram, Ecchymosis Condition: Stable Record reviewed to determine appropriate education?: Yes Comments: Rakan the ultrasound that we did at the bedside shows that the femoral artery where he the catheter was placed to complete your procedure is intact. There is no aneurysm of this artery. There were also no fluid collections in the area around your groin. The cause of your pain is most likely settling of fluid in tissues. The nerve in the right groin may be slightly inflamed. If at any point you find that your leg is cool or dusky in color, becomes very painful or you have increased bruising in the groin please return to the ER for a second look. Your INR today is 1.6. Please take 1 extra dose of your Coumadin and discuss this with your bucket pusher.
[2020-03-24 21:37] LABS: BASOPHILS # (AUTO) 0.1 10^3/uL (0.0-0.1); BASOPHILS % (AUTO) 0.9 %; EOSINOPHILS # (AUTO) 0.1 10^3/uL (0.0-0.7); EOSINOPHILS % (AUTO) 1.8 %; HGB - HEMOGLOBIN 13.3 g/dL (14.0-18.0); LYMPHOCYTES % (AUTO) 17.7 %; MEAN CORPUSCULAR HEMOGLOBIN 35.5 pg (27.0-31.0); MEAN CORPUSCULAR HGB CONC 34.6 g/dL (32.0-36.0); MEAN CORPUSCULAR VOLUME 102.4 fL (80.0-94.0); MEAN PLATELET VOLUME 11.8 fL (7.4-11.4); MONOCYTES # (AUTO) 0.5 10^3/uL (0.0-1.0); MONOCYTES % (AUTO) 8.9 %; NEUTROPHILS # (AUTO) 3.9 10^3/uL (1.5-6.6); NEUTROPHILS % (AUTO) 68.9 %; PLT - PLATELET COUNT 127 10^3/uL (130-450); RED BLOOD COUNT 3.75 10^6/uL (4.70-6.10); RED CELL DISTRIBUTION WIDTH 15.2 % (12.0-15.0); WHITE BLOOD COUNT 5.7 x10^3/uL (4.8-10.8)
[2020-03-24 21:44] LABS: INR 1.6 (0.8-1.2); PT - PROTHROMBIN TIME 17.3 secs (9.9-12.6)
[2020-03-24 21:45] LABS: ALBUMIN 4.4 g/dL (3.2-5.5); ALBUMIN/GLOBULIN RATIO 2.3 (1.0-2.2); BILIRUBIN,TOTAL 2.7 mg/dL (0.2-1.0); CALCIUM 8.9 mg/dL (8.5-10.3); CREATININE 1.6 mg/dL (0.6-1.2); TOTAL PROTEIN 6.3 g/dL (6.7-8.2)
[2020-03-24 22:23] VITALS: BP 133/85
--- NOTE | 2020-03-25 08:57 | Ultrasound Report ---
PROCEDURE: Duplex Lwr Ext Arterial RT INDICATIONS: Possible pseudoaneurysm at site of angioplasty abscess approximately 6 days ago. Evalua te also for hematoma. TECHNIQUE: Color and pulse Doppler interrogation was performed of the right groin region in area of current clin ical concern, with image documentation. COMPARISON: None FINDINGS: Limited study targeted to the area of angioplasty axis and above and below. No evidence of pseudoaneurysm or postprocedural hematoma. IMPRESSION: No abnormalities found in the area of current clinical concern. Reviewed by: Fabrizio Champagne MD on 03/25/2020 8:55 AM PST Approved by: Fabrizio Champagne MD on 03/25/2020 8:55 AM PST Station ID: [id number]
== END 2020-03-24 22:22 | disposition home or self-care (01) ==
LOC: ED 20:53
DX: R58 Hemorrhage, not elsewhere classified (principal); Z98.61 Coronary angioplasty status; I48.91 Unspecified atrial fibrillation; Z79.01 Long term (current) use of anticoagulants; I10 Essential (primary) hypertension
CPT/HCPCS: 36415; 80053; 83690; 85025; 85610; 99284

== ENCOUNTER 2020-03-25 08:00 | Outpatient (CLI) | payer MEDICARE, OTHER | END 2020-03-25 23:59 | disposition home or self-care (01) | LOC: LAB.WCP 08:00 | PROVIDERS: ATTEND Internal Medicine | DX: Z79.01 Long term (current) use of anticoagulants (principal) ==

== ENCOUNTER 2020-04-01 08:00 | Outpatient (CLI) | payer MEDICARE, OTHER | END 2020-04-01 23:59 | disposition home or self-care (01) | LOC: LAB.WCP 08:00 | PROVIDERS: ATTEND Internal Medicine | DX: Z79.01 Long term (current) use of anticoagulants (principal) ==

== ENCOUNTER 2020-04-08 10:08 | Outpatient (CLI) | payer MEDICARE, OTHER ==
[2020-04-08 13:48] LABS: HEMOGLOBIN A1c% 5.2 % (4.27-6.07)
[2020-04-08 13:59] LABS: CREATININE,URINE 105.8 mg/dL; MICROALBUM/CREATININE RATIO,UR 4.7 ug/mg (<30.0); MICROALBUMIN,URINE 0.5 mg/dL (0-300.0)
[2020-04-08 14:02] LABS: BUN - BLOOD UREA NITROGEN 23 mg/dL (6-20); CALCIUM 10.6 mg/dL (8.5-10.3); CARBON DIOXIDE - CO2 29 mmol/L (21-32); CHLORIDE 103 mmol/L (101-111); CHOL/HDL RATIO 3.5 (<5.0); CHOLESTEROL 129 mg/dL; CREATININE 1.6 mg/dL (0.6-1.2); GLUCOSE 111 mg/dL (70-100); HDL CHOLESTEROL 37 mg/dL; LDL CHOLESTEROL,CALCULATED 71 mg/dL; LDL/HDL RATIO 1.9 (<3.6); SODIUM 142 mmol/L (135-145); VLDL CHOLESTEROL 21 mg/dL
[2020-04-10 19:17] LABS: ALBUMIN 4.6 g/dL (3.8-4.8); ALPHA 1 GLOBULIN 0.2 g/dL (0.2-0.3); ALPHA 2 GLOBULIN 0.7 g/dL (0.5-0.9); BETA 1 GLOBULIN 0.3 g/dL (0.4-0.6); BETA 2 GLOBULIN 0.2 g/dL (0.2-0.5); GAMMA GLOBULIN 0.6 g/dL (0.8-1.7)
== END 2020-04-08 10:09 | disposition home or self-care (01) ==
LOC: LAB.N 10:08
PROVIDERS: ATTEND Internal Medicine
DX: I50.20 Unspecified systolic (congestive) heart failure (principal); G62.9 Polyneuropathy, unspecified; R73.01 Impaired fasting glucose
CPT/HCPCS: 36415; 80048; 80061; 82043; 82570; 83036; 83721; 84155; 84165; 84443

== ENCOUNTER 2020-04-24 08:00 | Outpatient (CLI) | payer MEDICARE, OTHER | END 2020-04-24 23:59 | disposition home or self-care (01) | LOC: LAB.WCP 08:00 | PROVIDERS: ATTEND Internal Medicine | DX: Z79.01 Long term (current) use of anticoagulants (principal) ==

== ENCOUNTER 2020-05-01 | Outpatient (CLI) | payer MEDICARE, OTHER | END 2020-05-01 23:59 | disposition home or self-care (01) | DX: Z79.01 Long term (current) use of anticoagulants (principal) ==

== ENCOUNTER 2020-05-06 08:00 | Outpatient (CLI) | payer MEDICARE, OTHER | END 2020-05-06 23:59 | disposition home or self-care (01) | LOC: LAB.WCP 08:00 | PROVIDERS: ATTEND Internal Medicine | DX: Z79.01 Long term (current) use of anticoagulants (principal) ==

== ENCOUNTER 2020-05-15 08:00 | Outpatient (CLI) | payer MEDICARE, OTHER | END 2020-05-15 23:59 | disposition home or self-care (01) | LOC: LAB.WCP 08:00 | PROVIDERS: ATTEND Internal Medicine | DX: I48.91 Unspecified atrial fibrillation (principal); Z79.01 Long term (current) use of anticoagulants ==

== ENCOUNTER 2020-05-22 06:50 | Outpatient (CLI) | payer MEDICARE, OTHER ==
--- NOTE | 2020-05-22 10:56 | Ultrasound Report ---
PROCEDURE: Retroperitoneal Limited INDICATIONS: AAA TECHNIQUE: Real time scanning was performed of the aorta and iliac arteries, with image documentatio n. COMPARISON: 03/01/2019 FINDINGS: Aorta: Proximal aortic diameter measures 3.2 x 2.8 cm. Mid-aorta is not visualized secondary to ove rlying bowel gas. Distal aortic diameter is 3.4 x 4.4 cm. The craniocaudal extent of the aneurysmal s egment is 9.7 cm. Size is not significantly changed. It previously measured 3.5 x 4.5 cm in maximum d iameter. Iliac arteries: Right common iliac artery measures 1.3 x 1.7 cm. Left common iliac artery measures 1.4 x 1.5 cm. Incidental note is made of the presence of at least moderate left common iliac artery s tenotic disease. IMPRESSION: 1. Stable size and appearance of infrarenal abdominal aortic aneurysm, measuring 9.7 cm in craniocaud al extent and maximum axial dimension of 3.5 x 4.5 cm. 2. Ectatic iliac arteries. Incidental note made of the presence of at least a moderate left common il iac artery stenosis. Reviewed by: Chapin Clemons MD on 05/22/2020 10:55 AM PST Approved by: Chapin Clemons MD on 05/22/2020 10:55 AM PST Station ID: [id number]
== END 2020-05-22 06:51 | disposition home or self-care (01) ==
LOC: DI 06:50
PROVIDERS: ATTEND Internal Medicine
DX: I71.4 Abdominal aortic aneurysm, without rupture (principal)

== ENCOUNTER 2020-06-07 08:00 | Outpatient (CLI) | payer MEDICARE, OTHER | END 2020-06-07 23:59 | disposition home or self-care (01) | LOC: LAB.WCP 08:00 | PROVIDERS: ATTEND Internal Medicine | DX: I48.91 Unspecified atrial fibrillation (principal); Z79.01 Long term (current) use of anticoagulants ==

== ENCOUNTER 2020-06-24 08:00 | Outpatient (CLI) | payer MEDICARE, OTHER ==
[2020-06-24 12:50] LABS: CHOL/HDL RATIO 3.8 (<5.0); CHOLESTEROL 114 mg/dL; CREATININE,URINE 265.1 mg/dL; HDL CHOLESTEROL 30 mg/dL; LDL CHOLESTEROL,CALCULATED 53 mg/dL; LDL/HDL RATIO 1.8 (<3.6); MICROALBUMIN,URINE 1.6 mg/dL (0-300.0); TRIGLYCERIDES 156 mg/dL; VLDL CHOLESTEROL 31 mg/dL
[2020-06-24 12:51] LABS: THYROID STIMULATING HORMONE 1.23 uIU/mL (0.34-5.60)
[2020-06-24 19:25] LABS: ESTIMATED AVERAGE GLUCOSE 94 mg/dL (70-100); HEMOGLOBIN A1c% 4.9 % (4.27-6.07)
== END 2020-06-24 23:59 | disposition home or self-care (01) ==
LOC: LAB.WCP 08:00
PROVIDERS: ATTEND Internal Medicine
DX: R73.01 Impaired fasting glucose (principal); I25.5 Ischemic cardiomyopathy; G62.9 Polyneuropathy, unspecified
CPT/HCPCS: 36415; 80061; 81599; 82043; 82570; 83036; 83721; 84443; 86850; 86880

== ENCOUNTER 2020-06-29 07:00 | Outpatient (CLI) | payer MEDICARE, OTHER ==
--- NOTE | 2020-06-29 10:27 | Ultrasound Report ---
PROCEDURE: Abdomen Complete INDICATIONS: AQUIRED HEMOLYTIC ANEMIA TECHNIQUE: Real-time scanning was performed of the abdominal and retroperitoneal organs, with image documentatio n. COMPARISON: None. FINDINGS: Liver: Liver is normal in size. Heterogeneously increased liver parenchymal echotexture is seen. No discrete hepatic lesion. Gallbladder: Gallbladder is surgically absent. Biliary ducts: Intrahepatic bile ducts are non-dilated. Extrahepatic bile duct caliber measures 5 m m. Normal is 6-7 mm or less in diameter, or 10 mm or less post-cholecystectomy. Pancreas: Visualized portions of the pancreas are sonographically normal. Spleen: Spleen is enlarged and measures 14.6 cm in length and a volume of 478 cc. No discrete spleni c lesion is seen. Kidneys: Kidneys are normal in size and echotexture. Right kidney measures 9.9 cm long; left kidney measures 11.3 cm long. No hydronephrosis or nephrolithiasis. No solid masses. Simple cyst is seen in lower pole of right kidney measures 1.6 x 1.5 x 1.1 cm in size. Aorta: Proximal abdominal aorta measures 3.1 cm. Mid abdominal aorta measures up to 3.9 cm in diamete r. Distal abdominal aorta measures up to 4 x 4.1 cm in AP and transverse dimension. More inferior dis conchita infrarenal abdominal aorta now measures 3.6 x 4.1 cm in AP and transverse dimensions. Extensive a therosclerotic plaques are noted throughout the abdominal aorta. Iliacs: Proximal common iliac arteries are normal in caliber at less than 2.5 cm. IVC: Intrahepatic inferior vena cava is patent. Miscellaneous: No free abdominal fluid. IMPRESSION: 1. Fusiform abdominal aortic aneurysm measures up to 4 cm in largest AP diameter as above. Extensive atherosclerotic disease throughout the abdominal aorta. 2. Hepatic steatosis, no discrete hepatic lesion. 3. Splenomegaly, no discrete splenic lesion. 4. Right renal cyst as above. No hydronephrosis. 5. Prior cholecystectomy. No biliary ductal dilatation. Reviewed by: Keny Camilo MD on 06/29/2020 10:26 AM PDT Approved by: Keny Camilo MD on 06/29/2020 10:26 AM PDT Station ID: [id number]
== END 2020-06-29 07:01 | disposition home or self-care (01) ==
LOC: DI 07:00
PROVIDERS: ATTEND Internal Medicine Hematology & Oncology
DX: D59.9 Acquired hemolytic anemia, unspecified (principal); I12.9 Hypertensive chronic kidney disease with stage 1 through stage 4 chronic kidney disease, or unspecified chronic kidney disease; I71.4 Abdominal aortic aneurysm, without rupture; K76.0 Fatty (change of) liver, not elsewhere classified; R16.1 Splenomegaly, not elsewhere classified; N28.1 Cyst of kidney, acquired; Z90.49 Acquired absence of other specified parts of digestive tract

== ENCOUNTER 2020-07-03 08:00 | Outpatient (CLI) | payer MEDICARE, OTHER ==
[2020-07-03 18:44] LABS: CALCIUM 8.7 mg/dL (8.5-10.3); CREATININE 1.5 mg/dL (0.6-1.2); POTASSIUM 3.9 mmol/L (3.5-5.0)
== END 2020-07-03 23:59 | disposition home or self-care (01) ==
LOC: LAB.WCP 08:00
PROVIDERS: ATTEND Internal Medicine Interventional Cardiology
DX: I10 Essential (primary) hypertension (principal)
CPT/HCPCS: 36415; 80048

== ENCOUNTER 2020-07-05 08:00 | Outpatient (CLI) | payer MEDICARE, OTHER | END 2020-07-05 23:59 | disposition home or self-care (01) | LOC: LAB.WCP 08:00 | PROVIDERS: ATTEND Internal Medicine | DX: I48.0 Paroxysmal atrial fibrillation (principal); Z79.01 Long term (current) use of anticoagulants ==

== ENCOUNTER 2020-08-02 08:00 | Outpatient (CLI) | payer MEDICARE, OTHER | END 2020-08-02 23:59 | disposition home or self-care (01) | LOC: LAB.WCP 08:00 | PROVIDERS: ATTEND Internal Medicine | DX: Z79.01 Long term (current) use of anticoagulants (principal); I48.91 Unspecified atrial fibrillation ==

== ENCOUNTER 2020-08-23 08:00 | Outpatient (CLI) | payer MEDICARE, OTHER | END 2020-08-23 23:59 | disposition home or self-care (01) | LOC: LAB.WCP 08:00 | PROVIDERS: ATTEND Internal Medicine | DX: Z53.9 Procedure and treatment not carried out, unspecified reason (principal); Z79.01 Long term (current) use of anticoagulants; I48.0 Paroxysmal atrial fibrillation ==

== ENCOUNTER 2020-08-23 08:00 | Outpatient (CLI) | payer MEDICARE, OTHER | END 2020-08-23 23:59 | disposition home or self-care (01) | LOC: LAB.WCP 08:00 | PROVIDERS: ATTEND Internal Medicine | DX: I48.0 Paroxysmal atrial fibrillation (principal); Z79.01 Long term (current) use of anticoagulants ==

== ENCOUNTER 2020-09-16 08:00 | Outpatient (CLI) | payer MEDICARE, OTHER | END 2020-09-16 23:59 | disposition home or self-care (01) | LOC: LAB.WCP 08:00 | PROVIDERS: ATTEND Internal Medicine | DX: I48.91 Unspecified atrial fibrillation (principal); Z79.01 Long term (current) use of anticoagulants ==

== ENCOUNTER 2020-11-18 08:00 | Outpatient (CLI) | payer MEDICARE, OTHER | END 2020-11-18 23:59 | disposition home or self-care (01) | LOC: LAB.WCP 08:00 | PROVIDERS: ATTEND Internal Medicine | DX: I48.91 Unspecified atrial fibrillation (principal); Z79.01 Long term (current) use of anticoagulants ==

== ENCOUNTER 2021-02-10 08:00 | Outpatient (CLI) | payer MEDICARE, OTHER | END 2021-02-10 23:59 | disposition home or self-care (01) | LOC: LAB.WCP 08:00 | PROVIDERS: ATTEND Nurse Practitioner Family | DX: I48.0 Paroxysmal atrial fibrillation (principal); Z79.01 Long term (current) use of anticoagulants ==

== ENCOUNTER 2021-02-13 16:30 | Outpatient (CLI) | payer MEDICARE, OTHER ==
--- NOTE | 2021-02-14 14:13 | XRAY Report ---
PROCEDURE: Hip w/Pelvis 2-3V RT INDICATIONS: ASSESS FOR PROGRESSION OF DJD TECHNIQUE: AP pelvis with lateral view(s) of the right hip(s). COMPARISON: X-ray hip 04/19/2018 FINDINGS: Bones: No fractures or dislocations. Pelvic ring appears intact. No suspicious bony lesions. Ther e is moderate to severe right and moderate left hip joint space narrowing. Minimal periarticular oste ophytes are present. No erosions. Minimal interval progression is noted most notably on the right. Soft tissues: The visualized bowel gas pattern is normal. No suspicious soft tissue calcifications. IMPRESSION: Arthritic change of the hip joints bilaterally slightly progressive as above. Reviewed by: Kateryna Segundo MD on 02/14/2021 2:12 PM PST Approved by: Kateryna Segundo MD on 02/14/2021 2:12 PM PST Station ID: [id number]
== END 2021-02-13 16:31 | disposition home or self-care (01) ==
LOC: DI.N 16:30
PROVIDERS: ATTEND Internal Medicine
DX: M16.0 Bilateral primary osteoarthritis of hip (principal)

== ENCOUNTER 2021-03-03 08:00 | Outpatient (CLI) | payer MEDICARE, OTHER | END 2021-03-03 23:59 | disposition home or self-care (01) | LOC: LAB.WCP 08:00 | PROVIDERS: ATTEND Internal Medicine | DX: I48.0 Paroxysmal atrial fibrillation (principal); Z79.01 Long term (current) use of anticoagulants ==

== ENCOUNTER 2021-03-10 08:00 | Outpatient (CLI) | payer MEDICARE, OTHER | END 2021-03-10 23:59 | disposition home or self-care (01) | LOC: LAB.WCP 08:00 | PROVIDERS: ATTEND Internal Medicine | DX: I48.91 Unspecified atrial fibrillation (principal); Z79.01 Long term (current) use of anticoagulants ==

== ENCOUNTER 2021-04-04 08:00 | Outpatient (CLI) | payer MEDICARE, OTHER | END 2021-04-04 23:59 | disposition home or self-care (01) | LOC: LAB.WCP 08:00 | PROVIDERS: ATTEND Internal Medicine | DX: I48.0 Paroxysmal atrial fibrillation (principal); Z79.01 Long term (current) use of anticoagulants ==

== ENCOUNTER 2021-04-07 08:00 | Outpatient (CLI) | payer MEDICARE, OTHER ==
[2021-04-07 11:49] LABS: BASOPHILS # (AUTO) 0.1 10^3/uL (0.0-0.1); BASOPHILS % (AUTO) 0.7 %; EOSINOPHILS % (AUTO) 0.4 %; HCT - HEMATOCRIT 42.2 % (42.0-52.0); HGB - HEMOGLOBIN 14.6 g/dL (14.0-18.0); LYMPHOCYTES % (AUTO) 10.6 %; MEAN CORPUSCULAR HEMOGLOBIN 35.3 pg (27.0-31.0); MEAN CORPUSCULAR HGB CONC 34.6 g/dL (32.0-36.0); MEAN CORPUSCULAR VOLUME 101.9 fL (80.0-94.0); MEAN PLATELET VOLUME 12.2 fL (7.4-11.4); MONOCYTES # (AUTO) 0.4 10^3/uL (0.0-1.0); MONOCYTES % (AUTO) 4.7 %; NEUTROPHILS # (AUTO) 7.5 10^3/uL (1.5-6.6); NRBC ABSOLUTE COUNT (AUTO) 0.02 x10^3/uL; NUCLEATED RED BLOOD CELLS AUTO 0.2 /100WBC; PLT - PLATELET COUNT 145 10^3/uL (130-450); RED BLOOD COUNT 4.14 10^6/uL (4.70-6.10); RED CELL DISTRIBUTION WIDTH 17.7 % (12.0-15.0); WHITE BLOOD COUNT 9.1 x10^3/uL (4.8-10.8)
[2021-04-07 12:44] LABS: THYROID STIMULATING HORMONE 1.93 uIU/mL (0.34-5.60)
[2021-04-07 12:55] LABS: ALBUMIN 4.2 g/dL (3.2-5.5); ALBUMIN/GLOBULIN RATIO 1.9 (1.0-2.2); ALKALINE PHOSPHATASE 41 IU/L (42-121); ALT ALANINE AMINOTRANSFERASE 26 IU/L (10-60); AST ASPARTATE AMINOTRANSFERASE 22 IU/L (10-42); BILIRUBIN,TOTAL 3.4 mg/dL (0.2-1.0); BUN - BLOOD UREA NITROGEN 17 mg/dL (6-20); CALCIUM 8.9 mg/dL (8.5-10.3); CARBON DIOXIDE - CO2 25 mmol/L (21-32); CHLORIDE 107 mmol/L (101-111); CHOL/HDL RATIO 3.4 (<5.0); CHOLESTEROL 154 mg/dL; CREATININE 1.3 mg/dL (0.6-1.2); GFR - MDRD 54 (>89); GLUCOSE 170 mg/dL (70-100); HDL CHOLESTEROL 45 mg/dL; LDL CHOLESTEROL,CALCULATED 78 mg/dL; LDL/HDL RATIO 1.7 (<3.6); POTASSIUM 3.2 mmol/L (3.5-5.0); SODIUM 143 mmol/L (135-145); TOTAL PROTEIN 6.4 g/dL (6.7-8.2); TRIGLYCERIDES 154 mg/dL; VLDL CHOLESTEROL 31 mg/dL
== END 2021-04-07 23:59 ==
LOC: LAB.WCP 08:00
PROVIDERS: ATTEND Internal Medicine
DX: I25.5 Ischemic cardiomyopathy (principal); E78.5 Hyperlipidemia, unspecified; N40.1 Benign prostatic hyperplasia with lower urinary tract symptoms; I48.91 Unspecified atrial fibrillation
CPT/HCPCS: 36415; 80053; 80061; 83721; 84153; 84443; 85025

== ENCOUNTER 2021-04-07 10:49 | Outpatient (CLI) | payer MEDICARE, OTHER ==
--- NOTE | 2021-04-07 17:01 | XRAY Report ---
PROCEDURE: Finger(s) LT INDICATIONS: TENOSYNOVITIS OF L 3RD FINGER TECHNIQUE: AP hand, 3 views of the left third finger(s) acquired. COMPARISON: None FINDINGS: Bones: No fractures or dislocations. No suspicious bony lesions. Mild third DIP joint and PIP join t osteoarthritis. On Soft tissues: No suspicious soft tissue calcifications. IMPRESSION: No fracture. No acute osseous lesion. If there persistent symptoms or continued clinical concern for pathology, then repeat plain film radiographs (7-10 days) or advanced imaging (CT, MR, bone scan) ruth uld be considered for further evaluation. Reviewed by: Hoa Lyons MD, PhD on 04/07/2021 4:59 PM PST Approved by: Hoa Lyons MD, PhD on 04/07/2021 4:59 PM PST Station ID: [id number]
== END 2021-04-07 10:50 | disposition home or self-care (01) ==
LOC: DI.N 10:49
PROVIDERS: ATTEND Internal Medicine
DX: M65.849 Other synovitis and tenosynovitis, unspecified hand (principal); I25.5 Ischemic cardiomyopathy; I48.91 Unspecified atrial fibrillation; E78.5 Hyperlipidemia, unspecified; N40.1 Benign prostatic hyperplasia with lower urinary tract symptoms
CPT/HCPCS: 36415; 80053; 80061; 83721; 84153; 84443; 85025

== ENCOUNTER 2021-04-25 08:00 | Outpatient (CLI) | payer MEDICARE, OTHER | END 2021-04-25 23:59 | disposition home or self-care (01) | LOC: LAB.WCP 08:00 | PROVIDERS: ATTEND Nurse Practitioner Family | DX: I48.0 Paroxysmal atrial fibrillation (principal); Z79.01 Long term (current) use of anticoagulants ==

== ENCOUNTER 2021-05-12 08:00 | Outpatient (CLI) | payer MEDICARE, OTHER | END 2021-05-12 23:59 | disposition home or self-care (01) | LOC: LAB.N 08:00 | PROVIDERS: ATTEND Internal Medicine | DX: I48.91 Unspecified atrial fibrillation (principal); Z79.01 Long term (current) use of anticoagulants ==

== ENCOUNTER 2021-05-26 08:00 | Outpatient (CLI) | payer MEDICARE, OTHER | END 2021-05-26 23:59 | disposition home or self-care (01) | LOC: LAB.N 08:00 | PROVIDERS: ATTEND Internal Medicine | DX: I48.0 Paroxysmal atrial fibrillation (principal); Z79.01 Long term (current) use of anticoagulants | CPT/HCPCS: 81002 ==

== ENCOUNTER 2021-05-31 08:00 | Outpatient (CLI) | payer MEDICARE, OTHER ==
[2021-05-31 16:58] LABS: H. PYLORIS ANTIGEN STL NEGATIVE (Negative)
== END 2021-05-31 23:59 ==
LOC: LAB.N 08:00
PROVIDERS: ATTEND Internal Medicine
DX: K52.9 Noninfective gastroenteritis and colitis, unspecified (principal)
CPT/HCPCS: 81599; 83993; 87045; 87046; 87329; 87338; 87427; 87449; 87493

== ENCOUNTER 2021-06-09 08:00 | Outpatient (CLI) | payer MEDICARE, OTHER | END 2021-06-09 23:59 | disposition home or self-care (01) | LOC: LAB.N 08:00 | PROVIDERS: ATTEND Internal Medicine | DX: I48.91 Unspecified atrial fibrillation (principal); Z79.01 Long term (current) use of anticoagulants ==

== ENCOUNTER 2021-06-13 08:00 | Outpatient (CLI) | payer MEDICARE, OTHER | END 2021-06-13 23:59 | disposition home or self-care (01) | LOC: LAB.N 08:00 | PROVIDERS: ATTEND Internal Medicine | DX: I48.91 Unspecified atrial fibrillation (principal); Z79.01 Long term (current) use of anticoagulants ==

== ENCOUNTER 2021-06-20 08:00 | Outpatient (CLI) | payer MEDICARE, OTHER | END 2021-06-20 23:59 | disposition home or self-care (01) | LOC: LAB.WCP 08:00 | PROVIDERS: ATTEND Internal Medicine | DX: I48.91 Unspecified atrial fibrillation (principal); Z79.01 Long term (current) use of anticoagulants ==

== ENCOUNTER 2021-07-04 08:00 | Outpatient (CLI) | payer MEDICARE, OTHER | END 2021-07-04 23:59 | disposition home or self-care (01) | LOC: LAB.N 08:00 | PROVIDERS: ATTEND Internal Medicine | DX: I48.91 Unspecified atrial fibrillation (principal); Z79.01 Long term (current) use of anticoagulants ==

== ENCOUNTER 2021-07-11 08:00 | Outpatient (CLI) | payer MEDICARE, OTHER | END 2021-07-11 23:59 | disposition home or self-care (01) | LOC: LAB.WCP 08:00 | PROVIDERS: ATTEND Internal Medicine | DX: I48.91 Unspecified atrial fibrillation (principal); Z79.01 Long term (current) use of anticoagulants ==

== ENCOUNTER 2021-07-25 08:12 | Outpatient (CLI) | payer MEDICARE, OTHER | END 2021-07-25 08:13 | disposition home or self-care (01) | LOC: LAB.N 08:12 | PROVIDERS: ATTEND Internal Medicine | DX: I48.91 Unspecified atrial fibrillation (principal); Z79.01 Long term (current) use of anticoagulants ==

== ENCOUNTER 2021-07-28 07:30 | Outpatient (CLI) | payer MEDICARE, OTHER | END 2021-07-28 23:59 | disposition home or self-care (01) | LOC: LAB.R 07:30 | PROVIDERS: ATTEND Physician Assistant | DX: R79.89 Other specified abnormal findings of blood chemistry (principal); A04.72 Enterocolitis due to Clostridium difficile, not specified as recurrent | CPT/HCPCS: 83993; 87329; 87338; 87493 ==

== ENCOUNTER 2021-08-05 09:28 | Outpatient (CLI) | payer MEDICARE, OTHER ==
--- NOTE | 2021-08-05 14:34 | XRAY Report ---
PROCEDURE: Hand 3 View LT INDICATIONS: LEFT MIDDLE FINGER PAIN SWELLING TECHNIQUE: 3 views of the hand(s) acquired as well as a lateral view of the third digit. COMPARISON: 04/07/2021 plain films. FINDINGS: Bones: No fractures or dislocations. No suspicious bony lesions. Mild multifocal joint space narro wing and periarticular osteophyte formation at the proximal and distal interphalangeal joints of the digits, as well as the first carpometacarpal joint and scaphotrapezial joint. Soft tissues: No suspicious soft tissue calcifications. IMPRESSION: 1. Multifocal osteoarthritis. 2. No acute fracture. No osseous lesion. If symptoms and/or clinical suspicion for pathology continue , further assessment with repeat plain films, or advanced imaging (e.g., CT, MRI, or bone scan) is re commended for further assessment. Reviewed by: Geoff Faria MD on 08/05/2021 2:33 PM PDT Approved by: Geoff Faria MD on 08/05/2021 2:33 PM PDT Station ID: [id number]
== END 2021-08-05 23:59 | disposition home or self-care (01) ==
LOC: DI.WOS 09:28
PROVIDERS: ATTEND Orthopaedic Surgery
DX: M19.042 Primary osteoarthritis, left hand (principal); M18.12 Unilateral primary osteoarthritis of first carpometacarpal joint, left hand

== ENCOUNTER 2021-08-05 10:16 | Outpatient (CLI) | payer MEDICARE, OTHER ==
[2021-08-05 10:38] LABS: BASOPHILS % (AUTO) 0.7 %; EOSINOPHILS # (AUTO) 0.1 10^3/uL (0.0-0.7); EOSINOPHILS % (AUTO) 1.2 %; HCT - HEMATOCRIT 41.7 % (42.0-52.0); HGB - HEMOGLOBIN 14.6 g/dL (14.0-18.0); MEAN CORPUSCULAR HEMOGLOBIN 35.8 pg (27.0-31.0); MEAN CORPUSCULAR VOLUME 102.2 fL (80.0-94.0); MEAN PLATELET VOLUME 11.9 fL (7.4-11.4); MONOCYTES # (AUTO) 0.5 10^3/uL (0.0-1.0); NEUTROPHILS # (AUTO) 4.1 10^3/uL (1.5-6.6); NEUTROPHILS % (AUTO) 70.4 %; PLT - PLATELET COUNT 130 10^3/uL (130-450); RED BLOOD COUNT 4.08 10^6/uL (4.70-6.10); RED CELL DISTRIBUTION WIDTH 17.3 % (12.0-15.0); WHITE BLOOD COUNT 5.8 x10^3/uL (4.8-10.8)
[2021-08-05 10:58] LABS: ALBUMIN 4.3 g/dL (3.2-5.5); ALBUMIN/GLOBULIN RATIO 1.8 (1.0-2.2); ALKALINE PHOSPHATASE 46 IU/L (42-121); ALT ALANINE AMINOTRANSFERASE 27 IU/L (10-60); AST ASPARTATE AMINOTRANSFERASE 24 IU/L (10-42); BILIRUBIN,TOTAL 3.6 mg/dL (0.2-1.0); BUN - BLOOD UREA NITROGEN 19 mg/dL (6-20); CALCIUM 9.2 mg/dL (8.5-10.3); CARBON DIOXIDE - CO2 27 mmol/L (21-32); CHLORIDE 103 mmol/L (101-111); CREATININE 1.3 mg/dL (0.6-1.2); GFR - MDRD 54 (>89); GLUCOSE 127 mg/dL (70-100); POTASSIUM 3.4 mmol/L (3.5-5.0); SODIUM 139 mmol/L (135-145); TOTAL PROTEIN 6.7 g/dL (6.7-8.2); URIC ACID 7.1 mg/dL (2.6-7.2)
[2021-08-05 11:06] LABS: CRP - C-REACTIVE PROTEIN < 1.0 mg/dL (0-1.0)
[2021-08-05 13:00] LABS: RHEUMATOID FACTOR NEGATIVE (Negative)
[2021-08-06 15:09] LABS: ANTI-DNA (DS) AB QN <1 IU/mL (0-9); CENTROMERE B ANTIBODIES <0.2 AI (0.0-0.9); CHROMATIN ANTIBODIES <0.2 AI (0.0-0.9); JO-1 AB <0.2 AI (0.0-0.9); RIBOSOMAL P ANTIBODIES <0.2 AI (0.0-0.9); RNP ANTIBODIES 0.2 AI (0.0-0.9); SCLERODERMA-70 ANTIBODIES <0.2 AI (0.0-0.9); SJOGREN'S ANTI-SS-A <0.2 AI (0.0-0.9); SJOGREN'S ANTI-SS-B <0.2 AI (0.0-0.9); SMITH ANTIBODIES <0.2 AI (0.0-0.9); SMITH/RNP ANTIBODIES <0.2 AI (0.0-0.9)
== END 2021-08-05 10:17 | disposition home or self-care (01) ==
LOC: LAB 10:16
PROVIDERS: ATTEND Orthopaedic Surgery
DX: M65.849 Other synovitis and tenosynovitis, unspecified hand (principal)
CPT/HCPCS: 36415; 80053; 84550; 85025; 85651; 86140; 86225; 86235; 86430

== ENCOUNTER 2021-08-14 08:48 | Outpatient (CLI) | payer MEDICARE, OTHER ==
[2021-08-14 12:03] LABS: BASOPHILS # (AUTO) 0.1 10^3/uL (0.0-0.1); BASOPHILS % (AUTO) 0.9 %; EOSINOPHILS # (AUTO) 0.1 10^3/uL (0.0-0.7); EOSINOPHILS % (AUTO) 1.7 %; LYMPHOCYTES # (AUTO) 1.1 10^3/uL (1.5-3.5); LYMPHOCYTES % (AUTO) 18.6 %; MEAN CORPUSCULAR HEMOGLOBIN 35.4 pg (27.0-31.0); MEAN CORPUSCULAR HGB CONC 34.1 g/dL (32.0-36.0); MEAN CORPUSCULAR VOLUME 103.5 fL (80.0-94.0); MONOCYTES # (AUTO) 0.5 10^3/uL (0.0-1.0); MONOCYTES % (AUTO) 8.2 %; NEUTROPHILS # (AUTO) 4.1 10^3/uL (1.5-6.6); NEUTROPHILS % (AUTO) 69.6 %; PLT - PLATELET COUNT 133 10^3/uL (130-450); RED BLOOD COUNT 3.96 10^6/uL (4.70-6.10); RED CELL DISTRIBUTION WIDTH 17.1 % (12.0-15.0); WHITE BLOOD COUNT 5.9 x10^3/uL (4.8-10.8)
[2021-08-14 12:42] LABS: ALBUMIN 4.1 g/dL (3.2-5.5); ALBUMIN/GLOBULIN RATIO 1.8 (1.0-2.2); BILIRUBIN,TOTAL 2.8 mg/dL (0.2-1.0); CALCIUM 9.3 mg/dL (8.5-10.3); CREATININE 1.4 mg/dL (0.6-1.2); POTASSIUM 3.9 mmol/L (3.5-5.0); TOTAL PROTEIN 6.4 g/dL (6.7-8.2); URIC ACID 6.8 mg/dL (2.6-7.2)
[2021-08-14 12:44] LABS: RHEUMATOID FACTOR NEGATIVE (Negative)
[2021-08-16 13:08] LABS: ANTINUCLEAR ANTIBODIES IFA Negative (.)
== END 2021-08-14 08:49 | disposition home or self-care (01) ==
LOC: LAB.N 08:48
PROVIDERS: ATTEND Internal Medicine
DX: M65.849 Other synovitis and tenosynovitis, unspecified hand (principal)
CPT/HCPCS: 36415; 80053; 84550; 85025; 85651; 86038; 86140; 86430

== ENCOUNTER 2021-09-01 08:00 | Outpatient (CLI) | payer MEDICARE, OTHER | END 2021-09-01 23:59 | disposition home or self-care (01) | LOC: LAB.WCP 08:00 | PROVIDERS: ATTEND Internal Medicine | DX: I48.91 Unspecified atrial fibrillation (principal); Z79.01 Long term (current) use of anticoagulants ==

== ENCOUNTER 2021-10-03 08:00 | Outpatient (CLI) | payer MEDICARE, OTHER | END 2021-10-03 08:01 | disposition home or self-care (01) | LOC: LAB.N 08:00 | PROVIDERS: ATTEND Internal Medicine | DX: I48.91 Unspecified atrial fibrillation (principal); Z79.01 Long term (current) use of anticoagulants ==

== ENCOUNTER 2021-10-13 08:00 | Outpatient (CLI) | payer MEDICARE, OTHER | END 2021-10-13 23:59 | disposition home or self-care (01) | LOC: LAB.WCP 08:00 | PROVIDERS: ATTEND Internal Medicine | DX: I48.91 Unspecified atrial fibrillation (principal); Z79.01 Long term (current) use of anticoagulants ==

== ENCOUNTER 2021-10-17 08:00 | Outpatient (CLI) | payer MEDICARE, OTHER | END 2021-10-17 08:01 | disposition home or self-care (01) | LOC: LAB.N 08:00 | PROVIDERS: ATTEND Internal Medicine | DX: I48.91 Unspecified atrial fibrillation (principal); Z79.01 Long term (current) use of anticoagulants ==

== ENCOUNTER 2021-12-03 08:00 | Outpatient (CLI) | payer MEDICARE, OTHER | END 2021-12-03 23:59 | disposition home or self-care (01) | LOC: LAB.N 08:00 | PROVIDERS: ATTEND Internal Medicine | DX: Z79.01 Long term (current) use of anticoagulants (principal); I48.0 Paroxysmal atrial fibrillation ==

== ENCOUNTER 2021-12-17 08:00 | Outpatient (CLI) | payer MEDICARE, OTHER | END 2021-12-17 08:01 | disposition home or self-care (01) | LOC: LAB.WCP 08:00 | PROVIDERS: ATTEND Internal Medicine | DX: Z79.01 Long term (current) use of anticoagulants (principal); I48.0 Paroxysmal atrial fibrillation ==

== ENCOUNTER 2022-02-02 14:12 | Outpatient (CLI) | payer MEDICARE, OTHER ==
[2022-02-02 14:35] LABS: BASOPHILS # (AUTO) 0.1 10^3/uL (0.0-0.1); BASOPHILS % (AUTO) 0.8 %; EOSINOPHILS # (AUTO) 0.1 10^3/uL (0.0-0.7); HCT - HEMATOCRIT 44.4 % (42.0-52.0); HGB - HEMOGLOBIN 14.9 g/dL (14.0-18.0); LYMPHOCYTES # (AUTO) 1.1 10^3/uL (1.5-3.5); LYMPHOCYTES % (AUTO) 16.9 %; MEAN CORPUSCULAR HEMOGLOBIN 34.4 pg (27.0-31.0); MEAN CORPUSCULAR HGB CONC 33.6 g/dL (32.0-36.0); MEAN CORPUSCULAR VOLUME 102.5 fL (80.0-94.0); MEAN PLATELET VOLUME 11.7 fL (7.4-11.4); MONOCYTES # (AUTO) 0.5 10^3/uL (0.0-1.0); MONOCYTES % (AUTO) 7.5 %; NEUTROPHILS # (AUTO) 4.6 10^3/uL (1.5-6.6); PLT - PLATELET COUNT 145 10^3/uL (130-450); RED BLOOD COUNT 4.33 10^6/uL (4.70-6.10); RED CELL DISTRIBUTION WIDTH 16.4 % (12.0-15.0); WHITE BLOOD COUNT 6.3 x10^3/uL (4.8-10.8)
[2022-02-02 14:51] LABS: ALBUMIN 4.7 g/dL (3.2-5.5); ALBUMIN/GLOBULIN RATIO 2.1 (1.0-2.2); BILIRUBIN,TOTAL 4.2 mg/dL (0.2-1.0); CALCIUM 9.3 mg/dL (8.5-10.3); CREATININE 1.3 mg/dL (0.6-1.2); POTASSIUM 4.1 mmol/L (3.5-5.0); TOTAL PROTEIN 6.9 g/dL (6.7-8.2)
[2022-02-03 06:11] LABS: HCV AB <0.1 s/co ratio (0.0-0.9)
== END 2022-02-02 14:13 | disposition home or self-care (01) ==
LOC: LAB 14:12
PROVIDERS: ATTEND Orthopaedic Surgery
DX: Z01.818 Encounter for other preprocedural examination (principal); I48.0 Paroxysmal atrial fibrillation; Z79.01 Long term (current) use of anticoagulants
CPT/HCPCS: 36415; 80053; 83036; 85025; 86803; 93005

== ENCOUNTER 2022-03-02 08:00 | Outpatient (CLI) | payer MEDICARE, OTHER | END 2022-03-02 08:01 | disposition home or self-care (01) | LOC: LAB.N 08:00 | PROVIDERS: ATTEND Internal Medicine | DX: Z79.01 Long term (current) use of anticoagulants (principal); I48.91 Unspecified atrial fibrillation ==

== ENCOUNTER → 2022-04-01 | Outpatient (CLI) | payer MEDICARE, OTHER | LOC: LAB.WCP 08:00 | PROVIDERS: ATTEND Internal Medicine | DX: Z79.01 Long term (current) use of anticoagulants (principal); I48.91 Unspecified atrial fibrillation ==

== ENCOUNTER → 2022-04-08 | Outpatient (CLI) | payer MEDICARE, OTHER | LOC: LAB.WCP 08:00 | PROVIDERS: ATTEND Internal Medicine | DX: Z79.01 Long term (current) use of anticoagulants (principal); I48.91 Unspecified atrial fibrillation ==

== ENCOUNTER 2022-04-22 08:00 | Outpatient (CLI) | payer MEDICARE, OTHER | END 2022-04-22 08:01 | disposition home or self-care (01) | LOC: LAB.WCP 08:00 | PROVIDERS: ATTEND Internal Medicine | DX: Z79.01 Long term (current) use of anticoagulants (principal); I48.91 Unspecified atrial fibrillation ==

== ENCOUNTER 2022-05-01 08:24 | Outpatient (CLI) | payer MEDICARE, OTHER ==
[2022-05-01 12:19] LABS: CHOL/HDL RATIO 2.7 (<5.0); CHOLESTEROL 105 mg/dL; HDL CHOLESTEROL 39 mg/dL; LDL CHOLESTEROL,CALCULATED 48 mg/dL; LDL/HDL RATIO 1.2 (<3.6); TRIGLYCERIDES 90 mg/dL; VLDL CHOLESTEROL 18 mg/dL
== END 2022-05-01 08:25 | disposition home or self-care (01) ==
LOC: LAB.N 08:24
PROVIDERS: ATTEND Internal Medicine
DX: E78.5 Hyperlipidemia, unspecified (principal)
CPT/HCPCS: 36415; 80061; 83721

== ENCOUNTER 2022-05-20 08:00 | Outpatient (CLI) | payer MEDICARE, OTHER | END 2022-05-20 23:59 | disposition home or self-care (01) | LOC: LAB.N 08:00 | PROVIDERS: ATTEND Internal Medicine | DX: Z79.01 Long term (current) use of anticoagulants (principal); I48.91 Unspecified atrial fibrillation ==

== ENCOUNTER 2022-06-17 08:00 | Outpatient (CLI) | payer MEDICARE, OTHER | END 2022-06-17 23:59 | disposition home or self-care (01) | LOC: LAB.N 08:00 | PROVIDERS: ATTEND Internal Medicine | DX: Z79.01 Long term (current) use of anticoagulants (principal); I48.91 Unspecified atrial fibrillation ==

== ENCOUNTER 2022-06-24 08:00 | Outpatient (CLI) | payer MEDICARE, OTHER | END 2022-06-24 23:59 | disposition home or self-care (01) | LOC: LAB.N 08:00 | PROVIDERS: ATTEND Internal Medicine | DX: I48.0 Paroxysmal atrial fibrillation (principal); Z79.01 Long term (current) use of anticoagulants ==

== ENCOUNTER 2022-07-17 08:00 | Outpatient (CLI) | payer MEDICARE, OTHER | END 2022-07-17 23:59 | disposition home or self-care (01) | LOC: LAB.WCP 08:00 | PROVIDERS: ATTEND Family Medicine | DX: Z79.01 Long term (current) use of anticoagulants (principal); I48.91 Unspecified atrial fibrillation ==

== ENCOUNTER 2022-07-24 08:00 | Outpatient (CLI) | payer MEDICARE, OTHER | END 2022-07-24 23:59 | disposition home or self-care (01) | LOC: LAB.WCP 08:00 | PROVIDERS: ATTEND Internal Medicine | DX: I48.91 Unspecified atrial fibrillation (principal); Z79.01 Long term (current) use of anticoagulants; Z51.81 Encounter for therapeutic drug level monitoring ==

== ENCOUNTER 2022-08-07 08:00 | Outpatient (CLI) | payer MEDICARE, OTHER | END 2022-08-07 23:59 | disposition home or self-care (01) | LOC: LAB.N 08:00 | PROVIDERS: ATTEND Internal Medicine | DX: Z79.01 Long term (current) use of anticoagulants (principal); I48.91 Unspecified atrial fibrillation ==

== ENCOUNTER 2022-08-20 06:52 | Outpatient (CLI) | payer MEDICARE, OTHER ==
--- NOTE | 2022-08-20 13:26 | Ultrasound Report ---
PROCEDURE: Retroperitoneal Limited INDICATIONS: AAA TECHNIQUE: Real-time scanning was performed of the retroperitoneal organs, with image documentation. COMPARISON: Abdominal ultrasound 06/29/2020, 05/22/2020 FINDINGS: The proximal, mid and distal aorta measure 2.9 x 3.7 cm, 3.1 x 3.2 cm, 3.6 x 3.7 cm. Previous measure ment of the distal abdominal aorta measured 3.7 x 4.1 cm. Right and left common iliac arteries measure 1.9 x 1.8 cm and 1.4 x 1.5 cm respectively. IMPRESSION: Persistent appearance of distal aortic aneurysmal dilation felt to be unchanged despite slight differ ences in measurement likely related to technique. Reviewed by: Kateryna Segundo MD on 08/20/2022 1:24 PM PDT Approved by: Kateryna Segundo MD on 08/20/2022 1:24 PM PDT Station ID: [id number]
== END 2022-08-20 06:53 | disposition home or self-care (01) ==
LOC: DI 06:52
PROVIDERS: ATTEND Internal Medicine
DX: I71.40 Abdominal aortic aneurysm, without rupture, unspecified (principal)

== ENCOUNTER 2022-08-21 08:00 | Outpatient (CLI) | payer MEDICARE, OTHER | END 2022-08-21 23:59 | disposition home or self-care (01) | LOC: LAB.N 08:00 | PROVIDERS: ATTEND Internal Medicine | DX: Z79.01 Long term (current) use of anticoagulants (principal); I48.91 Unspecified atrial fibrillation ==

== ENCOUNTER 2022-09-04 08:00 | Outpatient (CLI) | payer MEDICARE, OTHER | END 2022-09-04 23:59 | disposition home or self-care (01) | LOC: LAB.N 08:00 | PROVIDERS: ATTEND Internal Medicine | DX: Z79.01 Long term (current) use of anticoagulants (principal); I48.91 Unspecified atrial fibrillation ==

== ENCOUNTER 2022-09-11 08:00 | Outpatient (CLI) | payer MEDICARE, OTHER | END 2022-09-11 23:59 | disposition home or self-care (01) | LOC: LAB.N 08:00 | PROVIDERS: ATTEND Internal Medicine | DX: Z79.01 Long term (current) use of anticoagulants (principal); I48.91 Unspecified atrial fibrillation ==

== ENCOUNTER 2022-09-25 08:00 | Outpatient (CLI) | payer MEDICARE, OTHER | END 2022-09-25 23:59 | disposition home or self-care (01) | LOC: LAB.N 08:00 | PROVIDERS: ATTEND Internal Medicine | DX: Z79.01 Long term (current) use of anticoagulants (principal); I48.91 Unspecified atrial fibrillation ==

== ENCOUNTER 2022-11-20 08:00 | Outpatient (CLI) | payer MEDICARE, OTHER | END 2022-11-20 23:59 | disposition home or self-care (01) | LOC: LAB.N 08:00 | PROVIDERS: ATTEND Internal Medicine | DX: Z79.01 Long term (current) use of anticoagulants (principal); I48.91 Unspecified atrial fibrillation ==

== ENCOUNTER 2022-11-27 08:00 | Outpatient (CLI) | payer MEDICARE, OTHER | END 2022-11-27 23:59 | disposition home or self-care (01) | LOC: LAB.N 08:00 | PROVIDERS: ATTEND Internal Medicine | DX: I48.0 Paroxysmal atrial fibrillation (principal); Z79.01 Long term (current) use of anticoagulants ==

== ENCOUNTER 2022-12-31 14:24 | Outpatient (CLI) | payer MEDICARE, OTHER ==
[2022-12-31 17:42] LABS: BASOPHILS # (AUTO) 0.1 10^3/uL (0.0-0.1); BASOPHILS % (AUTO) 0.8 %; EOSINOPHILS # (AUTO) 0.1 10^3/uL (0.0-0.7); EOSINOPHILS % (AUTO) 2.1 %; HGB - HEMOGLOBIN 14.4 g/dL (14.0-18.0); LYMPHOCYTES # (AUTO) 1.1 10^3/uL (1.5-3.5); LYMPHOCYTES % (AUTO) 17.6 %; MEAN CORPUSCULAR HEMOGLOBIN 34.4 pg (27.0-31.0); MEAN CORPUSCULAR HGB CONC 33.5 g/dL (32.0-36.0); MEAN CORPUSCULAR VOLUME 102.9 fL (80.0-94.0); MEAN PLATELET VOLUME 11.8 fL (7.4-11.4); MONOCYTES # (AUTO) 0.6 10^3/uL (0.0-1.0); MONOCYTES % (AUTO) 9.2 %; NEUTROPHILS # (AUTO) 4.4 10^3/uL (1.5-6.6); NEUTROPHILS % (AUTO) 69.7 %; PLT - PLATELET COUNT 146 10^3/uL (130-450); RED BLOOD COUNT 4.18 10^6/uL (4.70-6.10); RED CELL DISTRIBUTION WIDTH 15.7 % (12.0-15.0); WHITE BLOOD COUNT 6.3 x10^3/uL (4.8-10.8)
[2022-12-31 18:07] LABS: ALBUMIN 4.6 g/dL (3.2-5.5); ALBUMIN/GLOBULIN RATIO 2.6 (1.0-2.2); ALKALINE PHOSPHATASE 59 IU/L (42-121); ALT ALANINE AMINOTRANSFERASE 14 IU/L (10-60); AST ASPARTATE AMINOTRANSFERASE 14 IU/L (10-42); BILIRUBIN,TOTAL 4.5 mg/dL (0.2-1.0); BUN - BLOOD UREA NITROGEN 20 mg/dL (6-20); CALCIUM 9.8 mg/dL (8.5-10.3); CARBON DIOXIDE - CO2 28 mmol/L (21-32); CHLORIDE 108 mmol/L (101-111); CHOL/HDL RATIO 2.7 (<5.0); CHOLESTEROL 101 mg/dL; CREATININE 1.3 mg/dL (0.6-1.3); GFR - MDRD 54 (>89); GLUCOSE 109 mg/dL (74-104); HDL CHOLESTEROL 37 mg/dL; LDL CHOLESTEROL,CALCULATED 43 mg/dL; LDL/HDL RATIO 1.2 (<3.6); POTASSIUM 3.4 mmol/L (3.5-4.5); SODIUM 144 mmol/L (135-145); TOTAL PROTEIN 6.4 g/dL (6.4-8.9); TRIGLYCERIDES 105 mg/dL (48-352); VLDL CHOLESTEROL 21 mg/dL
== END 2022-12-31 14:25 | disposition home or self-care (01) ==
LOC: LAB.N 14:24
PROVIDERS: ATTEND Internal Medicine
DX: I10 Essential (primary) hypertension (principal); R73.01 Impaired fasting glucose; E78.5 Hyperlipidemia, unspecified; D58.9 Hereditary hemolytic anemia, unspecified
CPT/HCPCS: 36415; 80053; 80061; 83721; 84443; 85025

== ENCOUNTER 2023-01-22 08:00 | Outpatient (CLI) | payer MEDICARE, OTHER | END 2023-01-22 23:59 | disposition home or self-care (01) | LOC: LAB.N 08:00 | PROVIDERS: ATTEND Internal Medicine | DX: Z79.01 Long term (current) use of anticoagulants (principal); I48.91 Unspecified atrial fibrillation ==

== ENCOUNTER 2023-02-26 08:00 | Outpatient (CLI) | payer MEDICARE, OTHER | END 2023-02-26 23:59 | disposition home or self-care (01) | LOC: LAB.WCP 08:00 → LAB.N 23:59 | PROVIDERS: ATTEND Internal Medicine | DX: Z51.81 Encounter for therapeutic drug level monitoring (principal); I48.0 Paroxysmal atrial fibrillation; Z79.01 Long term (current) use of anticoagulants ==

== ENCOUNTER 2023-04-02 08:00 | Outpatient (CLI) | payer MEDICARE, OTHER | END 2023-04-02 08:01 | disposition home or self-care (01) | LOC: LAB.N 08:00 | PROVIDERS: ATTEND Internal Medicine | DX: I48.91 Unspecified atrial fibrillation (principal); Z79.01 Long term (current) use of anticoagulants ==

== ENCOUNTER 2023-04-30 08:00 | Outpatient (CLI) | payer MEDICARE, OTHER | END 2023-04-30 08:01 | disposition home or self-care (01) | LOC: LAB.N 08:00 | PROVIDERS: ATTEND Internal Medicine | DX: I48.91 Unspecified atrial fibrillation (principal); Z79.01 Long term (current) use of anticoagulants ==

== ENCOUNTER 2023-05-23 08:00 | Outpatient (CLI) | payer MEDICARE, OTHER | END 2023-05-23 08:01 | disposition home or self-care (01) | LOC: LAB.WCP 08:00 | PROVIDERS: ATTEND Internal Medicine | DX: I48.91 Unspecified atrial fibrillation (principal); Z79.01 Long term (current) use of anticoagulants ==

== ENCOUNTER 2023-06-04 08:00 | Outpatient (CLI) | payer MEDICARE, OTHER | END 2023-06-04 08:01 | disposition home or self-care (01) | LOC: LAB.N 08:00 | PROVIDERS: ATTEND Internal Medicine | DX: I48.91 Unspecified atrial fibrillation (principal); Z79.01 Long term (current) use of anticoagulants ==

== ENCOUNTER 2023-06-18 08:00 | Outpatient (CLI) | payer MEDICARE, OTHER | END 2023-06-18 08:01 | disposition home or self-care (01) | LOC: LAB.WCP 08:00 | PROVIDERS: ATTEND Internal Medicine | DX: I48.91 Unspecified atrial fibrillation (principal); Z79.01 Long term (current) use of anticoagulants ==

== ENCOUNTER 2023-06-25 08:00 | Outpatient (CLI) | payer MEDICARE, OTHER | END 2023-06-25 08:01 | disposition home or self-care (01) | LOC: LAB.N 08:00 | PROVIDERS: ATTEND Internal Medicine | DX: I48.91 Unspecified atrial fibrillation (principal); Z79.01 Long term (current) use of anticoagulants ==

== ENCOUNTER 2023-07-05 08:42 | Outpatient (CLI) | payer MEDICARE, OTHER ==
[2023-07-05 12:13] LABS: BASOPHILS # (AUTO) 0.1 10^3/uL (0.0-0.1); BASOPHILS % (AUTO) 0.9 %; EOSINOPHILS # (AUTO) 0.1 10^3/uL (0.0-0.7); EOSINOPHILS % (AUTO) 2.1 %; HCT - HEMATOCRIT 43.3 % (42.0-52.0); HGB - HEMOGLOBIN 14.6 g/dL (14.0-18.0); LYMPHOCYTES % (AUTO) 15.7 %; MEAN CORPUSCULAR HEMOGLOBIN 35.9 pg (27.0-31.0); MEAN CORPUSCULAR HGB CONC 33.7 g/dL (32.0-36.0); MEAN CORPUSCULAR VOLUME 106.4 fL (80.0-94.0); MEAN PLATELET VOLUME 12.5 fL (7.4-11.4); MONOCYTES # (AUTO) 0.6 10^3/uL (0.0-1.0); NEUTROPHILS # (AUTO) 4.7 10^3/uL (1.5-6.6); NEUTROPHILS % (AUTO) 71.1 %; PLT - PLATELET COUNT 138 10^3/uL (130-450); RED BLOOD COUNT 4.07 10^6/uL (4.70-6.10); RED CELL DISTRIBUTION WIDTH 17.6 % (12.0-15.0); WHITE BLOOD COUNT 6.6 x10^3/uL (4.8-10.8)
[2023-07-05 12:24] LABS: ALBUMIN 4.4 g/dL (3.2-5.5); ALBUMIN/GLOBULIN RATIO 2.2 (1.0-2.2); BILIRUBIN,DIRECT 0.56 mg/dL (0.03-0.18); BILIRUBIN,INDIRECT 3.8 mg/dL; BILIRUBIN,TOTAL 4.4 mg/dL (0.2-1.0); CALCIUM 9.4 mg/dL (8.5-10.3); CREATININE 1.6 mg/dL (0.6-1.3); POTASSIUM 3.5 mmol/L (3.5-4.5); TOTAL PROTEIN 6.4 g/dL (6.4-8.9)
[2023-07-05 12:27] LABS: ESTIMATED AVERAGE GLUCOSE 100 mg/dL (70-100); HEMOGLOBIN A1c% 5.1 % (4.27-6.07)
[2023-07-05 12:36] LABS: THYROID STIMULATING HORMONE 2.18 uIU/mL (0.34-5.60)
== END 2023-07-05 08:43 | disposition home or self-care (01) ==
LOC: LAB.N 08:42
PROVIDERS: ATTEND Internal Medicine
DX: E80.6 Other disorders of bilirubin metabolism (principal); D58.9 Hereditary hemolytic anemia, unspecified; R73.01 Impaired fasting glucose; N40.1 Benign prostatic hyperplasia with lower urinary tract symptoms; I48.91 Unspecified atrial fibrillation
CPT/HCPCS: 36415; 80053; 82247; 82248; 83010; 83036; 83615; 84153; 84443; 85025

== ENCOUNTER 2023-07-09 08:00 | Outpatient (CLI) | payer MEDICARE, OTHER | END 2023-07-09 08:01 | disposition home or self-care (01) | LOC: LAB.WCP 08:00 | PROVIDERS: ATTEND Internal Medicine | DX: I48.0 Paroxysmal atrial fibrillation (principal); Z79.01 Long term (current) use of anticoagulants ==

== ENCOUNTER → 2023-07-30 | Outpatient (CLI) | payer MEDICARE, OTHER | LOC: LAB.WCP 08:00 | PROVIDERS: ATTEND Internal Medicine | DX: Z79.01 Long term (current) use of anticoagulants (principal); I48.91 Unspecified atrial fibrillation ==

== ENCOUNTER 2023-08-10 06:56 | Outpatient (CLI) | payer MEDICARE, OTHER ==
--- NOTE | 2023-08-10 11:38 | Ultrasound Report ---
PROCEDURE: Renal Ltd (Retroperitoneal Ltd INDICATIONS: AAA WITHOUT RUPTURE TECHNIQUE: Real-time scanning was performed of the retroperitoneum, with image documentation. COMPARISON: 08/20/2022. FINDINGS: The proximal, mid and distal aorta measure 3.2 x 3.1 cm, 2.5 x 2.1 cm, 3.9 x 4.3 cm. The distal aorti c aneurysm measures approximately 9.9 cm in length. Previous measurement of the distal abdominal aort a measured 3.6 x 3.7 cm. Calcified atherosclerotic plaques throughout. Right and left common iliac arteries measure 1.4 x 1.4 cm and 1.4 x 1.5 cm respectively. IMPRESSION: Distal aortic aneurysm with maximal dimension measuring up to 4.3 cm, increased compared to prior. On e-year follow-up ultrasound is recommended. Reviewed by: Daljit Nava MD on 08/10/2023 11:37 AM PDT Approved by: Daljit Nava MD on 08/10/2023 11:37 AM PDT Station ID: [id number]
== END 2023-08-10 06:57 | disposition home or self-care (01) ==
LOC: DI 06:56
PROVIDERS: ATTEND Family Medicine
DX: I71.40 Abdominal aortic aneurysm, without rupture, unspecified (principal); J44.9 Chronic obstructive pulmonary disease, unspecified; Z77.098 Contact with and (suspected) exposure to other hazardous, chiefly nonmedicinal, chemicals
CPT/HCPCS: 94060; 94729

== ENCOUNTER 2023-08-10 10:00 | Outpatient (CLI) | payer MEDICARE, OTHER ==
[2023-08-10] MEDS: ALBUTEROL 1 PUFF INH STA (11:53)
== END 2023-08-10 10:01 | disposition home or self-care (01) ==
LOC: RT 10:00
PROVIDERS: ATTEND Internal Medicine
DX: J44.9 Chronic obstructive pulmonary disease, unspecified (principal); Z77.098 Contact with and (suspected) exposure to other hazardous, chiefly nonmedicinal, chemicals
CPT/HCPCS: 94060; 94729

== ENCOUNTER 2023-09-06 08:00 | Outpatient (CLI) | payer MEDICARE, OTHER | END 2023-09-06 23:59 | disposition home or self-care (01) | LOC: LAB.WCP 08:00 | PROVIDERS: ATTEND Internal Medicine | DX: I48.0 Paroxysmal atrial fibrillation (principal); Z79.01 Long term (current) use of anticoagulants ==

== ENCOUNTER 2023-09-15 08:00 | Outpatient (CLI) | payer MEDICARE, OTHER | END 2023-09-15 23:59 | disposition home or self-care (01) | LOC: LAB.WCP 08:00 | PROVIDERS: ATTEND Internal Medicine | DX: I48.91 Unspecified atrial fibrillation (principal); Z79.01 Long term (current) use of anticoagulants ==

== ENCOUNTER 2023-11-19 08:00 | Outpatient (CLI) | payer MEDICARE, OTHER | END 2023-11-19 23:59 | disposition home or self-care (01) | LOC: LAB.N 08:00 | PROVIDERS: ATTEND Internal Medicine | DX: I48.91 Unspecified atrial fibrillation (principal); Z79.01 Long term (current) use of anticoagulants ==

== ENCOUNTER 2023-11-19 08:45 | Outpatient (CLI) | payer MEDICARE, OTHER ==
--- NOTE | 2023-11-19 13:14 | XRAY Report ---
PROCEDURE: Lumbar Spine 2-3V INDICATIONS: FLANK PAIN, RIGHT TECHNIQUE: 3 views of the lumbar spine were acquired. COMPARISON: CT abdomen and pelvis on July 18, 2017. FINDINGS: Surgical change: None. Bones: 5 [id number] vertebrae are present. There is normal bony alignment. No acute fracture. C hronic compression fracture at L1 with approximately 50% height loss and minimal osseous retropulsion , similar to prior CT dated July 18, 2017. No suspicious bony lesions. Mild multilevel degenerative changes with multilevel disc height loss and facet arthropathy. Soft tissues: Overlying bowel gas pattern is normal. No suspicious soft tissue calcifications. Abd ominal aortic bilobed aneurysm measuring 4.5 cm cranially and 4.4 cm caudally. Calcification of the a bdominal aorta and iliac vasculature. Previously, in sagittal plane, the bilobed abdominal aortic ane urysm measured 3.2 cm cranially and 3.4 cm caudally (series 6, image 35). Cholecystectomy clips. IMPRESSION: 1.Acute fracture. Chronic compression fracture at L1, similar to prior CT dated July 18, 2017. 2.Mild multilevel degenerative changes of the spine. 3.Abdominal aortic bilobed aneurysm measuring 4.5 cm cranially and 4.4 cm caudally. This appears incr eased in size compared to prior CT dated July 18, 2017. Consider a CTA of the abdomen and pelvis for further evaluation, at clinical discretion. Reviewed by: Emir Das MD on 11/19/2023 1:13 PM PDT Approved by: Emir Das MD on 11/19/2023 1:13 PM PDT Station ID: [id number]
== END 2023-11-19 09:00 | disposition home or self-care (01) ==
LOC: DI.N 08:45
PROVIDERS: ATTEND Physician Assistant Medical
DX: M47.816 Spondylosis without myelopathy or radiculopathy, lumbar region (principal); M48.56XD Collapsed vertebra, not elsewhere classified, lumbar region, subsequent encounter for fracture with routine healing; I71.40 Abdominal aortic aneurysm, without rupture, unspecified; R81 Glycosuria; I48.91 Unspecified atrial fibrillation; Z79.01 Long term (current) use of anticoagulants
CPT/HCPCS: 82962

== ENCOUNTER 2023-11-26 08:00 | Outpatient (CLI) | payer MEDICARE, OTHER | END 2023-11-26 23:59 | disposition home or self-care (01) | LOC: LAB.N 08:00 | PROVIDERS: ATTEND Internal Medicine | DX: I48.0 Paroxysmal atrial fibrillation (principal); Z79.01 Long term (current) use of anticoagulants ==

== ENCOUNTER 2023-12-10 08:00 | Outpatient (CLI) | payer MEDICARE, OTHER | END 2023-12-10 23:59 | disposition home or self-care (01) | LOC: LAB.WCP 08:00 | PROVIDERS: ATTEND Internal Medicine | DX: I48.91 Unspecified atrial fibrillation (principal); Z79.01 Long term (current) use of anticoagulants ==

== ENCOUNTER 2023-12-14 09:16 | Outpatient (CLI) | payer MEDICARE, OTHER ==
[2023-12-14 12:37] LABS: BASOPHILS % (AUTO) 0.8 %; EOSINOPHILS # (AUTO) 0.1 10^3/uL (0.0-0.7); EOSINOPHILS % (AUTO) 1.4 %; HCT - HEMATOCRIT 40.7 % (42.0-52.0); HGB - HEMOGLOBIN 13.9 g/dL (14.0-18.0); MEAN CORPUSCULAR HEMOGLOBIN 35.6 pg (27.0-31.0); MEAN CORPUSCULAR HGB CONC 34.2 g/dL (32.0-36.0); MEAN CORPUSCULAR VOLUME 104.4 fL (80.0-94.0); MEAN PLATELET VOLUME 12.5 fL (7.4-11.4); MONOCYTES # (AUTO) 0.5 10^3/uL (0.0-1.0); MONOCYTES % (AUTO) 9.7 %; NEUTROPHILS # (AUTO) 3.2 10^3/uL (1.5-6.6); NEUTROPHILS % (AUTO) 66.5 %; PLT - PLATELET COUNT 134 10^3/uL (130-450); RED CELL DISTRIBUTION WIDTH 16.7 % (12.0-15.0); WHITE BLOOD COUNT 4.9 x10^3/uL (4.8-10.8)
[2023-12-14 12:59] LABS: ALBUMIN 4.2 g/dL (3.2-5.5); ALBUMIN/GLOBULIN RATIO 2.8 (1.0-2.2); ALKALINE PHOSPHATASE 46 IU/L (42-121); ALT ALANINE AMINOTRANSFERASE 17 IU/L (10-60); AST ASPARTATE AMINOTRANSFERASE 17 IU/L (10-42); BILIRUBIN,TOTAL 3.3 mg/dL (0.2-1.0); BUN - BLOOD UREA NITROGEN 28 mg/dL (6-20); CALCIUM 9.3 mg/dL (8.5-10.3); CARBON DIOXIDE - CO2 26 mmol/L (21-32); CHLORIDE 108 mmol/L (101-111); CHOL/HDL RATIO 3.2 (<5.0); CHOLESTEROL 109 mg/dL; CREATININE 1.5 mg/dL (0.6-1.3); GFR - MDRD 46 (>89); GLUCOSE 127 mg/dL (74-104); HDL CHOLESTEROL 34 mg/dL; LDL CHOLESTEROL,CALCULATED 55 mg/dL; LDL/HDL RATIO 1.6 (<3.6); POTASSIUM 3.7 mmol/L (3.5-4.5); SODIUM 141 mmol/L (135-145); TOTAL PROTEIN 5.7 g/dL (6.4-8.9); TRIGLYCERIDES 98 mg/dL; VLDL CHOLESTEROL 20 mg/dL
[2023-12-14 13:11] LABS: ESTIMATED AVERAGE GLUCOSE 94 mg/dL (70-100); HEMOGLOBIN A1c% 4.9 % (4.27-6.07)
== END 2023-12-14 09:17 | disposition home or self-care (01) ==
LOC: LAB.N 09:16
PROVIDERS: ATTEND Internal Medicine
DX: I10 Essential (primary) hypertension (principal); E78.5 Hyperlipidemia, unspecified; R73.01 Impaired fasting glucose
CPT/HCPCS: 36415; 80053; 80061; 83036; 83721; 85025